=== PATIENT | female | born 1970 | race Two or more races ===

== ENCOUNTER 2020-08-21 17:21 | Inpatient (IN) | payer BC ==
[~2020-08-21] VITALS: Ht 160 cm; Wt 103.6 kg
[2020-08-21 19:28] LABS: BASO # 0.1 x10^3/uL (0.0-0.2); BASO % 0 % (0-3); EOS % 0 % (0-3); HEMATOCRIT 37.8 % (36.0-47.0); LYMPH # 1.2 x10^3/uL (1.0-4.8); LYMPH % 5 % (24-48); MEAN CORPUSCULAR HEMOGLOBIN 26 pg (25-35); MEAN CORPUSCULAR HGB CONC 32 g/dL (31-37); MEAN CORPUSCULAR VOLUME 81 fL (79-100); MONO # 1.2 x10^3/uL (0.0-1.1); MONO % 5 % (0-9); NEUT # 21.8 x10^3/uL (1.8-7.7); NEUT % 90 % (31-73); PLATELET COUNT 302 x10^3/uL (140-400); RED BLOOD COUNT 4.65 x10^6/uL (3.50-5.40); RED CELL DISTRIBUTION WIDTH 18.7 % (11.5-14.5); WHITE BLOOD COUNT 24.4 x10^3/uL (4.0-11.0)
[2020-08-21 19:36] LABS: PROTHROMBIN TIME PATIENT 15.2 SEC (11.7-14.0)
[2020-08-21 19:39] LABS: CALCIUM 9.2 mg/dL (8.5-10.1); CREATININE 0.9 mg/dL (0.6-1.0); GFR 66.3; POTASSIUM 3.8 mmol/L (3.5-5.1)
[2020-08-21 19:47] LABS: % BANDS 19 % (0-9); % LYMPHS 11 % (24-48); % MONOS 6 % (0-10); % SEGS 64 % (35-66); PLT ESTIMATE ADEQUATE (ADEQUATE)
[2020-08-21 19:54] LABS: ALBUMIN 2.6 g/dL (3.4-5.0); ALBUMIN/GLOBULIN RATIO 0.4 (1.0-1.7); TOTAL BILIRUBIN 0.9 mg/dL (0.2-1.0); TOTAL PROTEIN 8.7 g/dL (6.4-8.2)
[2020-08-21] MEDS ORDERED: VANCOMYCIN 1GM IVPB FOR OMNI 250 ML IV ONE (20:00)
[2020-08-21] MEDS ORDERED: IV NORMAL SALINE 1000ML BAG 1,000 ML IV ONE ×3 (20:00)
--- NOTE | 2020-08-21 20:06 | PHYS DOC ---
Past Medical History Past Medical History: Depression, Other Additional Past Medical Histor: KEARNS/CIRRHOSIS Past Surgical History: Appendectomy, Gastric Bypass, Tonsillectomy Smoking Status: Never Smoker Alcohol Use: Occasionally General Adult EDM: Chief Complaint: CELLULITIS HPI: HPI: Patient is a 50 year old female who presents with Thursday she states she mowed the grass. She states that she noticed what looked like a bug bite to the back of the left lower leg the calf area. She states redness then developed quickly and has spread from the anterior and posterior of the leg with 2+ swelling. She states that she had taken her temperature and it was 104 today. She states that she took Tylenol at 1400 today. Upon arrival her temperature was 99.2. She states when she is just sitting the pain is a 4 out of 10. She states when she is up and moving is a sharp throbbing 8 out of 10. She states the pain does radiate up her leg. She is able to ambulate. She denies any numbness or ti ngling, chest pain, shortness of air, cough, abdominal pain, nausea, vomiting, diarrhea, body aches, headache, dizziness. Patient has a history of cirrhosis, depression, gastric bypass. Review of Systems: Review of Systems: Constitutional: Positive for fever or chills. [] Eyes: Denies change in visual acuity. [] HENT: Denies nasal congestion or sore throat. [] Respiratory: Denies cough or shortness of breath. [] Cardiovascular: Denies chest pain or edema. [] GI: Denies abdominal pain, nausea, vomiting, bloody stools or diarrhea. [] : Denies dysuria. [] Musculoskeletal: Denies back pain or joint pain. Positive for left lower leg pain. [] Integument: Denies rash. Left lower leg redness. [] Neurologic: Denies headache, focal weakness or sensory changes. [] Endocrine: Denies polyuria or polydipsia. [] Lymphatic: Denies swollen glands. [] Psychiatric: Denies depression or anxiety. [] Heart Score: Risk Factors: Risk Factors: DM, Current or recent (<one month) smoker, HTN, HLP, family history of CAD, obesity. Risk Scores: Score 0 - 3: 2.5% MACE over next 6 weeks - Discharge Home Score 4 - 6: 20.3% MACE over next 6 weeks - Admit for Clinical Observation Score 7 - 10: 72.7% MACE over next 6 weeks - Early Invasive Strategies Allergies: Allergies: Allergies Coded Allergies Type Severity Reaction Last Updated Verified Penicillins Allergy Unknown 08/21/20 Yes Physical Exam: PE: Constitutional: Well developed, well nourished, no acute distress, non-toxic appearance. [] HENT: Normocephalic, atraumatic, bilateral external ears normal, oropharynx moist, no oral exudates, nose normal. [] Eyes: PERRLA, EOMI, conjunctiva normal, no discharge. [] Neck: Normal range of motion, no tenderness, supple, no stridor. [] Cardiovascular:Heart rate regular rhythm, no murmur [] Lungs & Thorax: Bilateral breath sounds clear to auscultation [] Abdomen: Bowel sounds normal, soft, no tenderness, no masses, no pulsatile masses. [] Skin: Warm, dry, left lower leg erythema, no rash. [] Back: No tenderness, no CVA tenderness. [] Extremities: No tenderness, no cyanosis, no clubbing, ROM intact, no edema. [] Neurologic: Alert and oriented X 3, normal motor function, normal sensory function, no focal deficits noted. [] Psychologic: Affect normal, judgement normal, mood normal. [] Current Patient Data: Labs: Laboratory Tests Test 08/21/20 19:15 White Blood Count 24.4 x10^3/uL (4.0-11.0) H Red Blood Count 4.65 x10^6/uL (3.50-5.40) Hemoglobin 12.0 g/dL (12.0-15.5) Hematocrit 37.8 % (36.0-47.0) Mean Corpuscular Volume 81 fL (79-100) Mean Corpuscular Hemoglobin 26 pg (25-35) Mean Corpuscular Hemoglobin Concent 32 g/dL (31-37) Red Cell Distribution Width 18.7 % (11.5-14.5) H Platelet Count 302 x10^3/uL (140-400) Neutrophils (%) (Auto) 90 % (31-73) H Lymphocytes (%) (Auto) 5 % (24-48) L Monocytes (%) (Auto) 5 % (0-9) Eosinophils (%) (Auto) 0 % (0-3) Basophils (%) (Auto) 0 % (0-3) Neutrophils # (Auto) 21.8 x10^3/uL (1.8-7.7) H Lymphocytes # (Auto) 1.2 x10^3/uL (1.0-4.8) Monocytes # (Auto) 1.2 x10^3/uL (0.0-1.1) H Eosinophils # (Auto) 0.0 x10^3/uL (0.0-0.7) Basophils # (Auto) 0.1 x10^3/uL (0.0-0.2) Segmented Neutrophils % 64 % (35-66) Band Neutrophils % 19 % (0-9) H Lymphocytes % 11 % (24-48) L Monocytes % 6 % (0-10) Platelet Estimate Adequate (ADEQUATE) Prothrombin Time 15.2 SEC (11.7-14.0) H Prothrombin Time INR 1.2 (0.8-1.1) H Sodium Level 131 mmol/L (136-145) L Potassium Level 3.8 mmol/L (3.5-5.1) Chloride Level 92 mmol/L (98-107) L Carbon Dioxide Level 31 mmol/L (21-32) Anion Gap 8 (6-14) Blood Urea Nitrogen 14 mg/dL (7-20) Creatinine 0.9 mg/dL (0.6-1.0) Estimated GFR (Cockcroft-Gault) 66.3 BUN/Creatinine Ratio 16 (6-20) Glucose Level 96 mg/dL (70-99) Lactic Acid Level 2.1 mmol/L (0.4-2.0) H Calcium Level 9.2 mg/dL (8.5-10.1) Total Bilirubin 0.9 mg/dL (0.2-1.0) Aspartate Amino Transferase (AST) 53 U/L (15-37) H Alanine Aminotransferase (ALT) 39 U/L (14-59) Alkaline Phosphatase 157 U/L (46-116) H Total Protein 8.7 g/dL (6.4-8.2) H Albumin 2.6 g/dL (3.4-5.0) L Albumin/Globulin Ratio 0.4 (1.0-1.7) L Laboratory Tests 08/21/20 19:15 Laboratory Tests 08/21/20 19:15 Vital Signs: Vital Signs Date Time Temp Pulse Resp B/P (MAP) Pulse Ox O2 Delivery O2 Flow Rate FiO2 08/21/20 17:46 99.2 103 18 145/89 (107) 95 Room Air 99.2 EKG: EKG: [] Radiology/Procedures: Radiology/Procedures: [] Impression: [facility] [address] [place] [address] IMAGING REPORT Signed PATIENT: JOHN FOWLER ACCOUNT: [id number] : 1970 LOCATION: ER AGE: 50 SEX: F EXAM STATUS: REG ER ORD. PHYSICIAN: BELINDA NOVAK APRN REASON: SWELLING PROCEDURE: VENOUS LOWER EXTREMITY LEFT Left lower extremity venous duplex Doppler ultrasound HISTORY: Left leg swelling and edema. FINDINGS: No DVT evident of the left common femoral vein,, profunda femoral vein, superficial femoral vein and popliteal vein with compressibility and patent color Doppler blood flow and augmentation of blood flow. No DVT with patent color Doppler blood flow the posterior tibial peroneal veins in the calf with some limited visualization. There is soft tissue edema of the leg. IMPRESSION: Negative left leg for DVT. Soft tissue edema of the lower leg. Electronically signed by: Magnus Jain MD (08/21/2020 8:08 PM) [id number] DICTATED and SIGNED BY: MAGNUS JAIN MD DATE: 08/21/202007 Course & Med Decision Making: Course & Med Decision Making Pertinent Labs and Imaging studies reviewed. (See chart for details) See HPI. Patient has been started on vancomycin antibiotic. I have also ordered 2 L of normal saline. She will then have normal saline at 125 an hour running to complete her sepsis fluid bolus. Patient's lactic acid is 2.1. White blood cell count is 24. Left pedal pulses present. I have spoken to Dr. Austin for admission. I will also consult ID. [] Lucille Disclaimer: Lucille Disclaimer: This electronic medical record was generated, in whole or in part, using a voice recognition dictation system. Date and Time of Reassessment Date: Aug 21, 2020 Time: 20:02 Fluid Challenge Is the fluid challenge complet: No IBW Target Volume Used: No BMI > 30: Yes Vital Signs Vital Signs: Vital Signs Date Time Temp Pulse Resp B/P (MAP) Pulse Ox O2 Delivery O2 Flow Rate FiO2 08/21/20 17:46 99.2 103 18 145/89 (107) 95 Room Air 99.2 Temperature Source: Oral Respirations Respiratory Effort: Normal Respiratory Pattern: Normal Cardiovascular Pulse Rhythm: Regular Heart: Nml rate, reg. rhythm Lung Sounds Breath Sounds: Clear Capillary Refil Capillary Refill: Rt Hand > 3 seconds Peripheral Pulse Pulse Location: Radial Pulse Strength: Normal (2+) Pulse Assessment Method: Monitor Integumentary Skin: Warm Skin Moisture: Dry Skin Turgor: Normal Skin Color: warm Fingernail Color: WNL Departure Departure Impression: Primary Impression: Cellulitis Qualified Codes: L03.90 - Cellulitis, unspecified Additional Impression: Sepsis Qualified Codes: A41.9 - Sepsis, unspecified organism Disposition: ADMITTED INPATIENT Admitting Physician: HIMAngelica Condition: STABLE Referrals: NO PCP (PCP) Justicifation of Admission Dx: Justifications for Admission: Justification of Admission Dx: Yes (cellulitis) Comments: cellulitis BELINDA NOVAK NEMATOLOGY TEACHER Aug 21, 2020 20:06
--- NOTE | 2020-08-21 20:10 | RAD ---
Left lower extremity venous duplex Doppler ultrasound HISTORY: Left leg swelling and edema. FINDINGS: No DVT evident of the left common femoral vein,, profunda femoral vein, superficial femoral vein and popliteal vein with compressibility and patent color Doppler blood flow and augmentation of blood flow. No DVT with patent color Doppler blood flow the posterior tibial peroneal veins in the calf with some limited visualization. There is soft tissue edema of the leg. IMPRESSION: Negative left leg for DVT. Soft tissue edema of the lower leg. Electronically signed by: Domenico Jain MD (08/21/2020 8:08 PM) [id number]
[2020-08-21] MEDS ORDERED: VANCOMYCIN 2 GM in IV NORMAL SALINE 500ML BAG 500 ML IV ONE (20:15)
[2020-08-21] MEDS ORDERED: SENNOSIDES 8.6 MG TABLET PO PRN (22:30)
[2020-08-21] MEDS ORDERED: IV NORMAL SALINE 1000ML BAG 1,000 ML IV SCH (22:30)
[2020-08-21] MEDS ORDERED: ONDANSETRON PF 4 MG/2 ML VIAL. IVP PRN (22:30)
[2020-08-21] MEDS ORDERED: ENOXAPARIN 40 MG/0.4 ML SYRINGE. SQ SCH (22:30)
[2020-08-21] MEDS ORDERED: ACETAMINOPHEN 325 MG TABLET. PO PRN (22:30)
[2020-08-21] MEDS ORDERED: POTASSIUM CHLORIDE 10MEQ 100 ML IV PRN (22:30)
[2020-08-21] MEDS ORDERED: POTASSIUM CHLORIDE 20 MEQ TABLET.ER. PO PRN (22:30)
[2020-08-21] MEDS ORDERED: DEXTROSE 50% 25 GM / 50ML DISP.SYRIN. IV PRN (22:30)
[2020-08-21] MEDS ORDERED: DOCUSATE SODIUM 100 MG CAPSULE. PO PRN (22:30)
[2020-08-21] MEDS: POTASSIUM CHLORIDE 10MEQ 100 ML IV SCH (23:30)
[2020-08-22] MEDS: POTASSIUM CHLORIDE 10MEQ 100 ML IV SCH ×3 (00:04→01:30)
[2020-08-22 01:36] LABS: BASO # 0.1 x10^3/uL (0.0-0.2); BASO % 0 % (0-3); EOS % 0 % (0-3); HEMATOCRIT 30.4 % (36.0-47.0); HEMOGLOBIN 9.6 g/dL (12.0-15.5); LYMPH # 1.1 x10^3/uL (1.0-4.8); LYMPH % 6 % (24-48); MEAN CORPUSCULAR HEMOGLOBIN 26 pg (25-35); MEAN CORPUSCULAR HGB CONC 32 g/dL (31-37); MEAN CORPUSCULAR VOLUME 81 fL (79-100); MONO # 1.1 x10^3/uL (0.0-1.1); MONO % 7 % (0-9); NEUT # 14.9 x10^3/uL (1.8-7.7); NEUT % 87 % (31-73); PLATELET COUNT 223 x10^3/uL (140-400); RED BLOOD COUNT 3.77 x10^6/uL (3.50-5.40); RED CELL DISTRIBUTION WIDTH 18.5 % (11.5-14.5); WHITE BLOOD COUNT 17.3 x10^3/uL (4.0-11.0)
[2020-08-22 01:48] LABS: CALCIUM 7.7 mg/dL (8.5-10.1); CREATININE 0.7 mg/dL (0.6-1.0); GFR 88.6; MAGNESIUM 1.6 mg/dL (1.8-2.4); PHOSPHORUS 1.7 mg/dL (2.6-4.7); POTASSIUM 3.9 mmol/L (3.5-5.1)
[2020-08-22 03:00] VITALS: BP 121/66
[2020-08-22] MEDS: VANCOMYCIN PER PHARMACY MC PRN ×2 (03:51→11:44)
--- NOTE | 2020-08-22 03:53 | NUR ---
Pharmacy Vancomycin Dosing Note S:Consulted to monitor and dose vancomycin started 08/21/20. O:JOHN FOWLER is a 50 year old F with Cellulitis . Height: 5 feet, 3 inches Weight: 95.0 kg [place] Body Weight: 52.40 Adjusted Body Weight: 69.44 Dosing Weight: Actual Other Antibiotics: LABS: Last BUN: 14 Last Creatinine: 0.9 Creatinine Clearance: 105 mL/min Last WBC: 24.4 Last Procalcitonin: Tmax (past 24 hours): Microbiology: I/O: Drug Levels: Last level: on at Last dose given at Vancomycin Dosing: Loading Dose: 2000 mg x1 08/21/202018 Dosing Weight: Actual Target Trough: 10-20 A: Based on: Actual Wt and CrCl P: 1. 08/22/20 0830 Vancomycin 1500 mg IV q12h 2. Follow up Trough level on 08/23/20 at 0800 3. Pharmacy will continue to monitor, follow and adjust therapy as needed. COLLINS GARCIA RPH, 08/22/20 0353 Signed: 08/22/20 at 0355 by COLLINS GARCIA RPH PHA
[2020-08-22] MEDS: MAGNESIUM SULFATE 2GM 50 ML IV SCH ×2 (04:04→21:04)
[2020-08-22] MEDS: fentaNYL PF VIAL 100 MCG/2 ML VIAL IV PRN ×2 (04:05→14:11)
[2020-08-22] MEDS ORDERED: FURO40TA4 PO (05:58)
[2020-08-22] MEDS ORDERED: NADO20TA2 PO (05:58)
[2020-08-22] MEDS ORDERED: RIFA550T4 PO (05:58)
[2020-08-22] MEDS ORDERED: NORT25CA PO (05:58)
[2020-08-22] MEDS ORDERED: CALC250T PO (05:58)
[2020-08-22] MEDS ORDERED: LACT20SO PO (05:58)
[2020-08-22] MEDS ORDERED: MULT-245 PO (05:58)
[2020-08-22] MEDS ORDERED: MAGN500C10 PO (05:58)
[2020-08-22] MEDS ORDERED: SPIR100T4 PO (05:58)
[2020-08-22 07:00] VITALS: BP 119/89
[2020-08-22] MEDS ORDERED: VANCOMYCIN 1.5 GM in IV NORMAL SALINE 500ML BAG 500 ML IV SCH (08:30)
--- NOTE | 2020-08-22 08:43 | PDOC1 ---
History and Physical Date of Admission Date of Admission DATE: 08/22/20 TIME: 08:42 Identification/Chief Complaint Chief Complaint SEEN IN ER WITH SEPSIS 50 year old female who presents with Thursday she states she mowed the grass. She states that she noticed what looked like a bug bite to the back of the left lower leg the calf area. She states redness then developed quickly and has spread from the anterior and posterior of the leg with 2+ swelling. She states that she had taken her temperature and it was 104 08/21 Upon arrival her temperature was 99.2 IN ER . She states when she is just sitting the pain is a 4 out of 10. She states when she is up and moving is a sharp throbbing 8 out of 10. She states the pain does radiate up her leg. She is able to ambulate. denies any numbness or tingling, chest pain, shortness of air, cough, abdominal pain, nausea, vomiting, diarrhea, body aches, headache, dizziness. Patient has a history of cirrhosis, depression, gastric bypass. Past Medical History Past Medical History Past Medical History Past Medical History: Depression, Other Additional Past Medical Histor: KEARNS/CIRRHOSIS Past Surgical History: Appendectomy, Gastric Bypass, Tonsillectomy Smoking Status: Never Smoker Alcohol Use: Occasionally fhx obesity Family History Family History: Hypertension Social History Smoke: No ALCOHOL: none Drugs: None Current Problem List Problem List Problems Medical Problems: (1) Cellulitis Status: Acute (2) Sepsis Status: Acute Current Medications Current Medications Current Medications Sodium Chloride 1,000 ml @ 1,000 mls/hr 1X ONCE IV Last administered on 08/21/20at 20:19; Start 08/21/20 at 20:00; Stop 08/21/20 at 20:59; Status DC Sodium Chloride 1,000 ml @ 1,000 mls/hr 1X ONCE IV Last administered on 08/21/20at 20:20; Start 08/21/20 at 20:00; Stop 08/21/20 at 20:59; Status DC Vancomycin HCl 250 ml @ 250 mls/hr 1X ONCE IV ; Start 08/21/20 at 20:00; Stop 08/21/20 at 20:59; Status UNV Sodium Chloride 1,000 ml @ 125 mls/hr 1X ONCE IV Last administered on 08/21/20at 20:20; Start 08/21/20 at 20:00; Stop 08/22/20 at 03:59; Status DC Vancomycin HCl 2 gm/Sodium Chloride 500 ml @ 250 mls/hr 1X ONCE IV Last administered on 08/21/20at 20:19; Start 08/21/20 at 20:15; Stop 08/21/20 at 22:14; Status DC Fentanyl Citrate (Fentanyl 2ml Vial) 50 mcg PRN Q1HR PRN IV PAIN Last administered on 08/22/20at 04:05; Start 08/21/20 at 20:30; Stop 08/22/20 at 20:29 Sennosides (Senna) 17.2 mg PRN BID PRN PO CONSTIPATION; Start 08/21/20 at 22:30 Docusate Sodium (Colace) 100 mg PRN DAILY PRN PO HARD STOOLS; Start 08/21/20 at 22:30 Ondansetron HCl (Zofran) 4 mg PRN Q6HRS PRN IVP NAUSEA/VOMITING; Start 08/21/20 at 22:30 Potassium Chloride (Klor-Con) 40 meq 1X PRN PO PER PROTOCOL; Start 08/21/20 at 22:30 Magnesium Oxide (Magnesium Oxide) 400 mg BID PO ; Start 08/22/20 at 09:00; Stop 08/23/20 at 21:01 Potassium Chloride/Water 100 ml @ 100 mls/hr Q1H IV Last administered on 08/22/20at 00:04; Start 08/21/20 at 22:30; Stop 08/22/20 at 02:29; Status DC Magnesium Sulfate 50 ml @ 25 mls/hr Q24H IV Last administered on 08/22/20at 04:04; Start 08/21/20 at 22:30; Stop 08/24/20 at 00:29 Potassium Chloride/Water 100 ml @ 100 mls/hr PRN Q1HR PRN IV low k Last administered on 08/22/20at 01:07; Start 08/21/20 at 22:30 Dextrose (Dextrose 50%-Water Syringe) 12.5 gm PRN Q15MIN PRN IV SEE COMMENTS; Start 08/21/20 at 22:30 Sodium Chloride 1,000 ml @ 125 mls/hr Q8H IV Last administered on 08/22/20at 00:03; Start 08/21/20 at 22:30 Acetaminophen (Tylenol) 650 mg PRN Q4HRS PRN PO TEMP OVER 100.4F OR MILD PAIN; Start 08/21/20 at 22:30 Vancomycin HCl (Vanco Per Pharmacy) 1 each PRN DAILY PRN MC SEE COMMENTS Last administered on 08/22/20at 03:51; Start 08/21/20 at 22:30 Enoxaparin Sodium (Lovenox 40mg Syringe) 40 mg Q24H SQ Last administered on 08/22/20at 04:05; Start 08/21/20 at 22:30 Vancomycin HCl 1.5 gm/Sodium Chloride 500 ml @ 250 mls/hr Q12H IV ; Start 08/22/20 at 08:30 Vancomycin HCl (Vancomycin Trough Level) 1 each 1X ONCE MC ; Start 08/23/20 at 08:00; Stop 08/23/20 at 08:01 Influenza Virus Vaccine Quadrival (Fluzone Quad Syringe) 0.5 ml ONCE ONCE VAX IM ; Start 08/22/20 at 09:00; Stop 08/22/20 at 09:01 Active Scripts Active Reported Magnesium (Magnesium Oxide) 500 Mg Capsule 1 Cap PO BID 30 Days Multi Vitamin Daily (Multivitamin) 1 Each Tablet 1 Tab PO DAILY 30 Days Lactulose 20 Gm/30 Ml Solution 45 Ml PO DAILY Calcium Citrate 250 Mg Tablet 1,200 Mg PO DAILY 30 Days Xifaxan (Rifaximin) 550 Mg Tablet 1 Tab PO BID 10 Days Spironolactone 100 Mg Tablet 1 Tab PO DAILY Furosemide 40 Mg Tablet 1 Tab PO DAILY Nadolol 20 Mg Tablet 1 Tab PO DAILY Nortriptyline Hcl 25 Mg Capsule 50 Mg PO QHS Allergies Allergies: Coded Allergies: Penicillins (Verified Allergy, Unknown, 08/21/20) ROS Review of System Review of Systems: Constitutional: Positive for fever // chills. [] Eyes: Denies change in visual acuity. [] HENT: Denies nasal congestion or sore throat. [] Respiratory: Denies cough or shortness of breath. [] Cardiovascular: Denies chest pain or edema. [] GI: Denies abdominal pain, nausea, vomiting, bloody stools or diarrhea. [] : Denies dysuria. [] Musculoskeletal: Denies back pain or joint pain. Positive for left lower leg pain. [] Integument: Denies rash. Left lower leg redness. [] Neurologic: Denies headache, focal weakness or sensory changes. [] Endocrine: Denies polyuria or polydipsia. [] Lymphatic: Denies swollen glands. [] Psychiatric: Denies depression or anxiety. [] 14 PT ROS OTHERWISE NEG Physical Exam Physical Exam Constitutional: Well developed, well nourished, no acute distress, non-toxic appearance. [] HENT: Normocephalic, atraumatic, bilateral external ears normal, oropharynx moist, no oral exudates, nose normal. [] Eyes: PERRLA, EOMI, conjunctiva normal, no discharge. [] Neck: Normal range of motion, no tenderness, supple, no stridor. [] Cardiovascular:Heart rate regular rhythm, no murmur [] Lungs & Thorax: Bilateral breath sounds clear to auscultation [] Abdomen: Bowel sounds normal, soft, no tenderness, no masses, no pulsatile masses. [] Skin: Warm, dry, left lower leg erythema, TENDER NO OPEN WOUNDS [] Back: No tenderness, no CVA tenderness. [] Extremities: No tenderness, no cyanosis, no clubbing, ROM intact, no edema. [] Neurologic: Alert and oriented X 3, normal motor function, normal sensory function, no focal deficits noted. [] Psychologic: Affect normal, judgment normal, mood normal. [] General: Alert, Oriented X3, Cooperative, No acute distress HEENT: EOMI, Mucous membr. moist/pink Lungs: Clear to auscultation, Normal air movement Heart: S1S2, RRR Breasts: Not examined Abdomen: Normal bowel sounds, Soft Rectal Exam: not examined PELVIC: Examination not indicated Extremities: No cyanosis Neuro: Normal speech, Cranial nerves 3-12 NL Psych/Mental Status: Mental status NL, Mood NL Vitals Vitals Vital Signs Date Time Temp Pulse Resp B/P (MAP) Pulse Ox O2 Delivery O2 Flow Rate FiO2 08/22/20 07:00 98.6 101 18 119/89 (99) 95 Room Air 98.6 Labs Labs Laboratory Tests Test 08/21/20 19:15 08/22/20 01:28 White Blood Count 24.4 x10^3/uL (4.0-11.0) 17.3 x10^3/uL (4.0-11.0) Red Blood Count 4.65 x10^6/uL (3.50-5.40) 3.77 x10^6/uL (3.50-5.40) Hemoglobin 12.0 g/dL (12.0-15.5) 9.6 g/dL (12.0-15.5) Hematocrit 37.8 % (36.0-47.0) 30.4 % (36.0-47.0) Mean Corpuscular Volume 81 fL (79-100) 81 fL (79-100) Mean Corpuscular Hemoglobin 26 pg (25-35) 26 pg (25-35) Mean Corpuscular Hemoglobin Concent 32 g/dL (31-37) 32 g/dL (31-37) Red Cell Distribution Width 18.7 % (11.5-14.5) 18.5 % (11.5-14.5) Platelet Count 302 x10^3/uL (140-400) 223 x10^3/uL (140-400) Neutrophils (%) (Auto) 90 % (31-73) 87 % (31-73) Lymphocytes (%) (Auto) 5 % (24-48) 6 % (24-48) Monocytes (%) (Auto) 5 % (0-9) 7 % (0-9) Eosinophils (%) (Auto) 0 % (0-3) 0 % (0-3) Basophils (%) (Auto) 0 % (0-3) 0 % (0-3) Neutrophils # (Auto) 21.8 x10^3/uL (1.8-7.7) 14.9 x10^3/uL (1.8-7.7) Lymphocytes # (Auto) 1.2 x10^3/uL (1.0-4.8) 1.1 x10^3/uL (1.0-4.8) Monocytes # (Auto) 1.2 x10^3/uL (0.0-1.1) 1.1 x10^3/uL (0.0-1.1) Eosinophils # (Auto) 0.0 x10^3/uL (0.0-0.7) 0.0 x10^3/uL (0.0-0.7) Basophils # (Auto) 0.1 x10^3/uL (0.0-0.2) 0.1 x10^3/uL (0.0-0.2) Segmented Neutrophils % 64 % (35-66) Band Neutrophils % 19 % (0-9) Lymphocytes % 11 % (24-48) Monocytes % 6 % (0-10) Platelet Estimate Adequate (ADEQUATE) Prothrombin Time 15.2 SEC (11.7-14.0) Prothromb Time International Ratio 1.2 (0.8-1.1) Sodium Level 131 mmol/L (136-145) 134 mmol/L (136-145) Potassium Level 3.8 mmol/L (3.5-5.1) 3.9 mmol/L (3.5-5.1) Chloride Level 92 mmol/L (98-107) 98 mmol/L (98-107) Carbon Dioxide Level 31 mmol/L (21-32) 27 mmol/L (21-32) Anion Gap 8 (6-14) 9 (6-14) Blood Urea Nitrogen 14 mg/dL (7-20) 12 mg/dL (7-20) Creatinine 0.9 mg/dL (0.6-1.0) 0.7 mg/dL (0.6-1.0) Estimated GFR (Cockcroft-Gault) 66.3 88.6 BUN/Creatinine Ratio 16 (6-20) Glucose Level 96 mg/dL (70-99) 82 mg/dL (70-99) Lactic Acid Level 2.1 mmol/L (0.4-2.0) 0.7 mmol/L (0.4-2.0) Calcium Level 9.2 mg/dL (8.5-10.1) 7.7 mg/dL (8.5-10.1) Total Bilirubin 0.9 mg/dL (0.2-1.0) Aspartate Amino Transf (AST/SGOT) 53 U/L (15-37) Alanine Aminotransferase (ALT/SGPT) 39 U/L (14-59) Alkaline Phosphatase 157 U/L (46-116) Total Protein 8.7 g/dL (6.4-8.2) Albumin 2.6 g/dL (3.4-5.0) Albumin/Globulin Ratio 0.4 (1.0-1.7) Phosphorus Level 1.7 mg/dL (2.6-4.7) Magnesium Level 1.6 mg/dL (1.8-2.4) Laboratory Tests Test 08/21/20 19:15 08/22/20 01:28 White Blood Count 24.4 x10^3/uL (4.0-11.0) 17.3 x10^3/uL (4.0-11.0) Red Blood Count 4.65 x10^6/uL (3.50-5.40) 3.77 x10^6/uL (3.50-5.40) Hemoglobin 12.0 g/dL (12.0-15.5) 9.6 g/dL (12.0-15.5) Hematocrit 37.8 % (36.0-47.0) 30.4 % (36.0-47.0) Mean Corpuscular Volume 81 fL (79-100) 81 fL (79-100) Mean Corpuscular Hemoglobin 26 pg (25-35) 26 pg (25-35) Mean Corpuscular Hemoglobin Concent 32 g/dL (31-37) 32 g/dL (31-37) Red Cell Distribution Width 18.7 % (11.5-14.5) 18.5 % (11.5-14.5) Platelet Count 302 x10^3/uL (140-400) 223 x10^3/uL (140-400) Neutrophils (%) (Auto) 90 % (31-73) 87 % (31-73) Lymphocytes (%) (Auto) 5 % (24-48) 6 % (24-48) Monocytes (%) (Auto) 5 % (0-9) 7 % (0-9) Eosinophils (%) (Auto) 0 % (0-3) 0 % (0-3) Basophils (%) (Auto) 0 % (0-3) 0 % (0-3) Neutrophils # (Auto) 21.8 x10^3/uL (1.8-7.7) 14.9 x10^3/uL (1.8-7.7) Lymphocytes # (Auto) 1.2 x10^3/uL (1.0-4.8) 1.1 x10^3/uL (1.0-4.8) Monocytes # (Auto) 1.2 x10^3/uL (0.0-1.1) 1.1 x10^3/uL (0.0-1.1) Eosinophils # (Auto) 0.0 x10^3/uL (0.0-0.7) 0.0 x10^3/uL (0.0-0.7) Basophils # (Auto) 0.1 x10^3/uL (0.0-0.2) 0.1 x10^3/uL (0.0-0.2) Segmented Neutrophils % 64 % (35-66) Band Neutrophils % 19 % (0-9) Lymphocytes % 11 % (24-48) Monocytes % 6 % (0-10) Platelet Estimate Adequate (ADEQUATE) Prothrombin Time 15.2 SEC (11.7-14.0) Prothromb Time International Ratio 1.2 (0.8-1.1) Sodium Level 131 mmol/L (136-145) 134 mmol/L (136-145) Potassium Level 3.8 mmol/L (3.5-5.1) 3.9 mmol/L (3.5-5.1) Chloride Level 92 mmol/L (98-107) 98 mmol/L (98-107) Carbon Dioxide Level 31 mmol/L (21-32) 27 mmol/L (21-32) Anion Gap 8 (6-14) 9 (6-14) Blood Urea Nitrogen 14 mg/dL (7-20) 12 mg/dL (7-20) Creatinine 0.9 mg/dL (0.6-1.0) 0.7 mg/dL (0.6-1.0) Estimated GFR (Cockcroft-Gault) 66.3 88.6 BUN/Creatinine Ratio 16 (6-20) Glucose Level 96 mg/dL (70-99) 82 mg/dL (70-99) Lactic Acid Level 2.1 mmol/L (0.4-2.0) 0.7 mmol/L (0.4-2.0) Calcium Level 9.2 mg/dL (8.5-10.1) 7.7 mg/dL (8.5-10.1) Total Bilirubin 0.9 mg/dL (0.2-1.0) Aspartate Amino Transf (AST/SGOT) 53 U/L (15-37) Alanine Aminotransferase (ALT/SGPT) 39 U/L (14-59) Alkaline Phosphatase 157 U/L (46-116) Total Protein 8.7 g/dL (6.4-8.2) Albumin 2.6 g/dL (3.4-5.0) Albumin/Globulin Ratio 0.4 (1.0-1.7) Phosphorus Level 1.7 mg/dL (2.6-4.7) Magnesium Level 1.6 mg/dL (1.8-2.4) Images Images DPOA REVIEW 17 MIN What Is a Power of Cna Ltc? A power of estate planning attorney (POA) is a legal document giving one person (the agent or [id number]) the power to act for another person (the principal). The agent can have broad legal authority or limited authority to make legal decisions about the principal's property, finances or medical care. The power of estate planning attorney is frequently used in the event of a principal's illness or disability, or when the principal can't be present to sign necessary legal documents for financial transactions. A power of estate planning attorney can end for a number of reasons, such as when the principal dies, the principal revokes it, a court invalidates it, the principal divorces their spouse, who happens to be the agent, or the agent can no longer carry out the outlined responsibilities. Conventional POAs lapse when the creator becomes incapacitated, but a durable POA remains in force to enable the agent to manage the creators affairs, and a springing POA comes into effect only if and when the creator of the POA becomes incapacitated. A medical or healthcare POA enables an agent to make medical decisions on behalf of an incapacitated person. [employer] A power of estate planning attorney (POA) is a legal document giving one person, the agent or [id number] the power to act for another person, the principal. The agent can have broad legal authority or limited authority to make decisions about the principal's property, finances or medical care. The power of estate planning attorney is often used when a principal becomes ill or disabled, or when they can't be present to sign necessary legal documents for financial transactions. Understanding Power of Cna Ltc A power of estate planning attorney should be considered when planning for long-term care. There are different types of POAs that fall under either a general power of estate planning attorney or limited power of estate planning attorney. A general power of estate planning attorney acts on behalf of the principal in any and all matters, as allowed by the state. The agent under a general POA agreement may be authorized to take care of issues such as handling bank accounts, signing checks, selling property and assets like stocks, f A limited power of estate planning attorney gives the agent the power to act on behalf of the principal in specific matters or events. For example, the limited POA may explicitly state that the agent is only allowed to manage the principal's re tirement accounts. A limited POA may also be limited to a specific period of time (e.g., if the principal will be out of the country for, say, two years). Most khoury of estate planning attorney documents allow an agent to represent the principal in all property and financial matters as long as the principals mental state of mind is good. If a situation occurs where the principal becomes incapable of making decisions for him or herself, the POA agreement would automatically end. However, someone who wants the POA to remain in effect after the persons health deteriorates would need to sign a durable power of estate planning attorney (DPOA). Comment Left lower extremity venous duplex Doppler ultrasound HISTORY: Left leg swelling and edema. FINDINGS: No DVT evident of the left common femoral vein,, profunda femoral vein, superficial femoral vein and popliteal vein with compressibility and patent color Doppler blood flow and augmentation of blood flow. No DVT with patent color Doppler blood flow the posterior tibial peroneal veins in the calf with some limited visualization. There is soft tissue edema of the leg. IMPRESSION: Negative left leg for DVT. Soft tissue edema of the lower leg. Electronically signed by: Domenico Jain MD (08/21/2020 8:08 PM) [id number] DICTATED and SIGNED BY: DOMENICO JAIN MD DATE: 08/21/202007 VTE Prophylaxis Ordered VTE Prophylaxis Devices: No VTE Pharmacological Prophylaxi: Yes Assessment/Plan Assessment/Plan Impression: Cellulitis LEFT LOWER LEG, SPIDER BITE POA MORBID OBESITY Sepsis electrolyte imbalance on replacement KEARNS Depression ADMITTED EMPERIC IV VANCOMYCIN IV FLUID SUPPORT BLOOD CULTURE DT booster if needed dvt prophylaxis D/W RN Justifications for Admission General Conditions Elevated Lactate?: Yes Justification for admission: Patient has tachycardia (> 100 beats per minute) or hypotension (SBP < 90 mm Hg) leading to inadequate systemic perfusion as indicated by lactate of greater or equal to 2.5 mmol/L. Other justification for admit: cellulitis Other Justification SANDI BONNER MD Aug 22, 2020 08:43
[2020-08-22] MEDS ORDERED: FLU VACC QS 2020-21(6MOS+)/PF 0.5 ML SYRINGE. VAX IM ONE (09:00)
[2020-08-22] MEDS: MAGNESIUM OXIDE 400 MG TABLET PO SCH ×2 (09:21→21:03)
[2020-08-22 10:40] VITALS: BP 122/80
[2020-08-22] MEDS: IV NORMAL SALINE 1000ML BAG 1,000 ML IV SCH ×2 (10:59→21:04)
[2020-08-22] MEDS ORDERED: ONDANSETRON PF 4 MG/2 ML VIAL. IV PRN (11:00)
[2020-08-22] MEDS ORDERED: POTASSIUM BICARB 10 MEQ EFFERVESCENT TABLET. FT ONE (11:00)
[2020-08-22] MEDS ORDERED: ZOLPIDEM 5 MG TABLET. PO PRN (11:00)
[2020-08-22] MEDS ORDERED: 0.9 % SODIUM CHLORIDE 10 ML DISP.SYRIN. IV PRN (11:00)
[2020-08-22] MEDS ORDERED: POTASSIUM BICARB 10 MEQ EFFERVESCENT TABLET. PO SCH (11:00)
[2020-08-22] MEDS ORDERED: ACETAMINOPHEN 325 MG TABLET. PO PRN (11:00)
[2020-08-22] MEDS ORDERED: guaiFENesin ORAL 200 MG/10 ML LIQUID. PO PRN (11:00)
[2020-08-22] MEDS ORDERED: diphenhydrAMINE 50 MG/ML VIAL IVP PRN (11:00)
[2020-08-22] MEDS ORDERED: DOCUSATE SODIUM 100 MG CAPSULE. PO PRN (11:00)
[2020-08-22] MEDS ORDERED: MAG HYDROX/ALUMINUM HYD/SIMETH 30 ML ORAL.SUSP PO PRN (11:00)
[2020-08-22] MEDS ORDERED: MAGNESIUM SULFATE 2GM 50 ML IV SCH (11:00)
[2020-08-22] MEDS ORDERED: POTASSIUM CHLORIDE 20 MEQ TABLET.ER. PO ONE (11:00)
[2020-08-22] MEDS ORDERED: VANCOMYCIN PER PHARMACY MC PRN (11:00)
[2020-08-22] MEDS ORDERED: SODIUM PHOSPHATES 19/7GM 133 ML ENEMA. PR PRN (11:00)
[2020-08-22] MEDS ORDERED: LORazepam 0.5 MG TABLET PO PRN (11:00)
[2020-08-22] MEDS ORDERED: cloNIDine HCL 0.1 MG TABLET PO PRN (11:00)
[2020-08-22] MEDS ORDERED: ALBUTEROL SULFATE 2.5 MG/3 ML NEBU. NEB PRN (11:00)
[2020-08-22] MEDS ORDERED: POTASSIUM CHLORIDE 10MEQ 100 ML IV SCH ×2 (11:00)
[2020-08-22] MEDS ORDERED: ELECTROLYTE (NON-ICU) PROTOCOL MC PRN (11:15)
--- NOTE | 2020-08-22 12:59 | PDOC ---
Infectious Disease Note Vital Sign Vital Signs Vital Signs Date Time Temp Pulse Resp B/P (MAP) Pulse Ox O2 Delivery O2 Flow Rate FiO2 08/22/20 10:40 98.4 104 18 122/80 (94) 96 Room Air 98.4 Labs Lab Laboratory Tests Test 08/21/20 19:15 08/22/20 01:28 White Blood Count 24.4 x10^3/uL (4.0-11.0) 17.3 x10^3/uL (4.0-11.0) Red Blood Count 4.65 x10^6/uL (3.50-5.40) 3.77 x10^6/uL (3.50-5.40) Hemoglobin 12.0 g/dL (12.0-15.5) 9.6 g/dL (12.0-15.5) Hematocrit 37.8 % (36.0-47.0) 30.4 % (36.0-47.0) Mean Corpuscular Volume 81 fL (79-100) 81 fL (79-100) Mean Corpuscular Hemoglobin 26 pg (25-35) 26 pg (25-35) Mean Corpuscular Hemoglobin Concent 32 g/dL (31-37) 32 g/dL (31-37) Red Cell Distribution Width 18.7 % (11.5-14.5) 18.5 % (11.5-14.5) Platelet Count 302 x10^3/uL (140-400) 223 x10^3/uL (140-400) Neutrophils (%) (Auto) 90 % (31-73) 87 % (31-73) Lymphocytes (%) (Auto) 5 % (24-48) 6 % (24-48) Monocytes (%) (Auto) 5 % (0-9) 7 % (0-9) Eosinophils (%) (Auto) 0 % (0-3) 0 % (0-3) Basophils (%) (Auto) 0 % (0-3) 0 % (0-3) Neutrophils # (Auto) 21.8 x10^3/uL (1.8-7.7) 14.9 x10^3/uL (1.8-7.7) Lymphocytes # (Auto) 1.2 x10^3/uL (1.0-4.8) 1.1 x10^3/uL (1.0-4.8) Monocytes # (Auto) 1.2 x10^3/uL (0.0-1.1) 1.1 x10^3/uL (0.0-1.1) Eosinophils # (Auto) 0.0 x10^3/uL (0.0-0.7) 0.0 x10^3/uL (0.0-0.7) Basophils # (Auto) 0.1 x10^3/uL (0.0-0.2) 0.1 x10^3/uL (0.0-0.2) Segmented Neutrophils % 64 % (35-66) Band Neutrophils % 19 % (0-9) Lymphocytes % 11 % (24-48) Monocytes % 6 % (0-10) Platelet Estimate Adequate (ADEQUATE) Prothrombin Time 15.2 SEC (11.7-14.0) Prothromb Time International Ratio 1.2 (0.8-1.1) Sodium Level 131 mmol/L (136-145) 134 mmol/L (136-145) Potassium Level 3.8 mmol/L (3.5-5.1) 3.9 mmol/L (3.5-5.1) Chloride Level 92 mmol/L (98-107) 98 mmol/L (98-107) Carbon Dioxide Level 31 mmol/L (21-32) 27 mmol/L (21-32) Anion Gap 8 (6-14) 9 (6-14) Blood Urea Nitrogen 14 mg/dL (7-20) 12 mg/dL (7-20) Creatinine 0.9 mg/dL (0.6-1.0) 0.7 mg/dL (0.6-1.0) Estimated GFR (Cockcroft-Gault) 66.3 88.6 BUN/Creatinine Ratio 16 (6-20) Glucose Level 96 mg/dL (70-99) 82 mg/dL (70-99) Lactic Acid Level 2.1 mmol/L (0.4-2.0) 0.7 mmol/L (0.4-2.0) Calcium Level 9.2 mg/dL (8.5-10.1) 7.7 mg/dL (8.5-10.1) Total Bilirubin 0.9 mg/dL (0.2-1.0) Aspartate Amino Transf (AST/SGOT) 53 U/L (15-37) Alanine Aminotransferase (ALT/SGPT) 39 U/L (14-59) Alkaline Phosphatase 157 U/L (46-116) Total Protein 8.7 g/dL (6.4-8.2) Albumin 2.6 g/dL (3.4-5.0) Albumin/Globulin Ratio 0.4 (1.0-1.7) Phosphorus Level 1.7 mg/dL (2.6-4.7) Magnesium Level 1.6 mg/dL (1.8-2.4) Objective Assessment Severe cellulitis of left leg. US neg DVT. Insect bite suspected. Symptoms developed after mowing the lawn. [place] and has seen spiders about the house. Leukocytosis PCN allergy (hives/trouble breathing) Tolerated amoxicillin 10 yrs ago and believes she's taken cephalexin ok Fever and chills improved since admission Obesity KEARNS Plan Plan of Care vancomycin per pharmacy protocol Monitor renal function closely Last tetanus was in May 2016 Further recs to follow Thank yo H/o tooth infection and ? KEARNS 4 years ago. Has tolerated Keflex and Amox Fairly rapid onset from Thu to Thursday and high fever likely a strep. Does not look like typical bug bite Change to Rocephin and Zyvox Elevation. Attending Co-Sign Attending Co-Sign The patient was seen and interviewed as well as examined at the bedside. The chart was reviewed. The case was discussed. Agree with the plan of care. DALE AGUIRRE APRN Aug 22, 2020 12:58 ABHIJIT SOTO MD Aug 22, 2020 13:46
[2020-08-22] MEDS: LACTOBACILLUS RHAMNOSUS GG 1 CAPSULE. PO SCH ×2 (14:11→21:03)
--- NOTE | 2020-08-22 14:13 | CONS ---
DATE OF CONSULTATION: 08/22/2020 Myriam Persaud NP dictating for Dr. Abhijit Soto, Infectious Disease. Referred by Cayla Child APRN. REASON FOR CONSULTATION: Cellulitis. HISTORY OF PRESENT ILLNESS: This patient is a pleasant 50-year-old female who presented with complaints of progressive left leg redness, swelling and pain associated with a fever of 104 and chills. She said her symptoms started about 2 days after she was outside mowing the lawn. She believes she may had been bitten as she noticed an open wound develop on the back of her left calf. She states she applied a warm washcloth to the area and took Tylenol with minimal improvement. A venous Doppler ultrasound showed no evidence of DVT. She was admitted and started on vancomycin. Today, the patient says her leg is about the same. Her leg still feels quite swollen and tight and throbs when she walks. Her fever and chills have settled down. She says her last tetanus shot was in 05/2016. [place] and has noticed quite a number of spiders about the house. She denies a history of Staph infections or recent antibiotics. PAST MEDICAL HISTORY: KEARNS followed by [facility]. Depression. Hypertension. PAST SURGICAL HISTORY: Gastric bypass, tonsillectomy, appendectomy. SOCIAL HISTORY: The patient is single. She is a former smoker. She is employed and works [employer] FAMILY HISTORY: Hypertension. ALLERGIES: PENICILLIN CAUSING HIVES AND DIFFICULTY BREATHING. She states she has taken amoxicillin about 10 years ago and believes that she has taken cephalexin without problem. MEDICATIONS: Reviewed on the MAR include vancomycin. REVIEW OF SYSTEMS: Per HPI, otherwise all other review of systems are negative. PHYSICAL EXAMINATION: VITAL SIGNS: Temperature is 98.4, blood pressure 122/80, heart rate 104, respiratory rate 18, pulse oximetry 96% on room air. GENERAL: The patient is propped up in bed, alert, eating, no apparent distress. HEENT: Pupils equally round, reactive. Normal conjunctivae. Oropharynx pink and moist. Dentures in place. NECK: Supple. LUNGS: Clear to auscultation. HEART: S1, S2. ABDOMEN: Obese, soft, nontender with bowel sounds present. EXTREMITIES: Unremarkable except left lower extremity is swollen, warm with circumferential redness from foot area to below the knee and medial thigh. A small puncture-like wound noted on the back of the calf. No drainage. SKIN: Warm to touch. No signs of rash. NEUROLOGIC: Alert and answering questions appropriately. LABORATORY DATA: Today's WBC 17,300 from 24,400 on admission; hemoglobin 9.6; platelets 223,000; segs 64%; bands 19%. Sodium 134, potassium 3.9, creatinine 0.7, BUN 12, glucose 82. Lactic acid 0.7 from 2.1, total bilirubin 0.9, AST 53, ALT 39, albumin 2.6. Blood cultures in progress. Venous ultrasound of left lower extremity showed no evidence of DVT. Soft tissue edema. IMPRESSION: 1. Severe cellulitis, left lower extremity. 2. Insect bite suspected. 3. Leukocytosis. 4. PENICILLIN ALLERGY CAUSING HIVES AND TROUBLE BREATHING. 5. Fever and chills, improved since admission. 6. Obesity. 8. Nonalcoholic steatohepatitis. PLAN: Likely strep related with rapid onset vs a bug bite. Dr. Soto recommends Zyvox and Rocephin Discontinue the vancomycin. Continue to monitor response. Thank you, Cayla Child for asking us to participate in this patient's care. Should you have further questions or concerns, please call. ABHIJIT SOTO MD DR: SHAD/lilian JOB#: [id number] / [id number] ERIN
--- NOTE | 2020-08-22 14:25 | NUR ---
SW following. Spoke with RN and reviewed chart. Pt from home with boyfriend. Pt on room air, IV Vancomycin. ID following. Spoke with pt who works from home and stated no concerns about returning home at discharge. ELLYN following.
--- NOTE | 2020-08-22 14:25 | NUR ---
Wound Care signing off, no open or draining wounds. Addendum: 08/22/20 at 1426 by FABIANO CHAMBERS RN Wound Care: Please reconsult if open wounds occur.
[2020-08-22 15:01] VITALS: BP 117/69
[2020-08-22] MEDS: cefTRIAXone IV Push 2 GM VIAL. IVP SCH (15:15)
[2020-08-22 19:00] VITALS: BP 152/81
[2020-08-22] MEDS: oxyCODONE/APAP 5/325 1 TAB TABLET PO PRN (19:47)
[2020-08-22] MEDS ORDERED: MAGNESIUM OXIDE 400 MG TABLET PO SCH (21:00)
[2020-08-22] MEDS ORDERED: POTASSIUM & SODIUM PHOSPHATES PACKET. PO SCH (21:00)
[2020-08-22] MEDS: LINEZOLID 600 MG TABLET PO SCH (21:03)
[2020-08-22] MEDS: ENOXAPARIN 40 MG/0.4 ML SYRINGE. SQ SCH (21:03)
[2020-08-22 23:00] VITALS: BP 164/79
[2020-08-23 03:02] VITALS: BP 100/63
[2020-08-23 07:00] VITALS: BP 142/68
[2020-08-23] MEDS: LACTOBACILLUS RHAMNOSUS GG 1 CAPSULE. PO SCH ×2 (09:05→21:31)
[2020-08-23] MEDS: LINEZOLID 600 MG TABLET PO SCH ×2 (09:05→21:31)
[2020-08-23] MEDS: MAGNESIUM OXIDE 400 MG TABLET PO SCH ×2 (09:06→21:31)
[2020-08-23] MEDS: oxyCODONE/APAP 5/325 1 TAB TABLET PO PRN ×2 (09:06→21:32)
[2020-08-23] MEDS: ENOXAPARIN 40 MG/0.4 ML SYRINGE. SQ SCH ×2 (09:08→21:37)
--- NOTE | 2020-08-23 09:09 | PDOC ---
PROGRESS NOTES Date of Service: DATE: 08/23/20 TIME: 09:08 Chief Complaint Chief Complaint VTE Prophylaxis Ordered VTE Prophylaxis Devices: No VTE Pharmacological Prophylaxi: Yes Assessment/Plan Assessment/Plan Impression: Cellulitis LEFT LOWER LEG, SPIDER BITE POA MORBID OBESITY Sepsis electrolyte imbalance on replacement KEARNS Depression ADMITTED continue Zyvox an Rocephin IV FLUID SUPPORT BLOOD CULTURE DT booster if needed dvt prophylaxis D/W RN Justifications for Admission Justifications for Admission General Conditions Elevated Lactate?: Yes Justification for admission: Patient has tachycardia (> 100 beats per minute) or hypotension (SBP < 90 mm Hg) leading to inadequate systemic perfusion as indicated by lactate of greater or equal to 2.5 mmol/L. Other justification for admit: cellulitis Other Justification History of Present Illness History of Present Illness dentification/Chief Complaint Chief Complaint SEEN IN ER WITH SEPSIS 50 year old female who presents with Thursday she states she mowed the grass. She states that she noticed what looked like a bug bite to the back of the left lower leg the calf area. She states redness then developed quickly and has spread from the anterior and posterior of the leg with 2+ swelling. She states that she had taken her temperature and it was 104 08/21 Upon arrival her temperature was 99.2 IN ER . She states when she is just sitting the pain is a 4 out of 10. She states when she is up and moving is a sharp throbbing 8 out of 10. She states the pain does radiate up her leg. She is able to ambulate. denies any numbness or tingling, chest pain, shortness of air, cough, abdominal pain, nausea, vomiting, diarrhea, body aches, headache, dizziness. Patient has a history of cirrhosis, depression, gastric bypass. Past Medical History Past Medical History Past Medical History Past Medical History: Depression, Other Additional Past Medical Histor: KEARNS/CIRRHOSIS Past Surgical History: Appendectomy, Gastric Bypass, Tonsillectomy Smoking Status: Never Smoker Alcohol Use: Occasionally fhx obesity Family History Family History: Hypertension Social History Smoke: No ALCOHOL: none Drugs: None Current Problem List Problem List Problems Medical Problems: (1) Cellulitis Status: Acute (2) Sepsis Status: Acute Vitals Vitals Vital Signs Date Time Temp Pulse Resp B/P (MAP) Pulse Ox O2 Delivery O2 Flow Rate FiO2 08/23/20 07:00 98.2 80 17 142/68 (92) 99 Room Air 98.2 Physical Exam General: Alert, Oriented X3, Cooperative, No acute distress Heart: Regular rate, No murmurs Abdomen: Normal bowel sounds, Soft Extremities: No clubbing, No cyanosis Assessment and Plan Assessmemt and Plan Problems Medical Problems: (1) Cellulitis Status: Acute (2) Sepsis Status: Acute Comment Review of Relevant I have reviewed the following items rocky (where applicable) has been applied. Labs Laboratory Tests Test 08/21/20 19:15 08/22/20 01:28 White Blood Count 24.4 x10^3/uL (4.0-11.0) 17.3 x10^3/uL (4.0-11.0) Red Blood Count 4.65 x10^6/uL (3.50-5.40) 3.77 x10^6/uL (3.50-5.40) Hemoglobin 12.0 g/dL (12.0-15.5) 9.6 g/dL (12.0-15.5) Hematocrit 37.8 % (36.0-47.0) 30.4 % (36.0-47.0) Mean Corpuscular Volume 81 fL (79-100) 81 fL (79-100) Mean Corpuscular Hemoglobin 26 pg (25-35) 26 pg (25-35) Mean Corpuscular Hemoglobin Concent 32 g/dL (31-37) 32 g/dL (31-37) Red Cell Distribution Width 18.7 % (11.5-14.5) 18.5 % (11.5-14.5) Platelet Count 302 x10^3/uL (140-400) 223 x10^3/uL (140-400) Neutrophils (%) (Auto) 90 % (31-73) 87 % (31-73) Lymphocytes (%) (Auto) 5 % (24-48) 6 % (24-48) Monocytes (%) (Auto) 5 % (0-9) 7 % (0-9) Eosinophils (%) (Auto) 0 % (0-3) 0 % (0-3) Basophils (%) (Auto) 0 % (0-3) 0 % (0-3) Neutrophils # (Auto) 21.8 x10^3/uL (1.8-7.7) 14.9 x10^3/uL (1.8-7.7) Lymphocytes # (Auto) 1.2 x10^3/uL (1.0-4.8) 1.1 x10^3/uL (1.0-4.8) Monocytes # (Auto) 1.2 x10^3/uL (0.0-1.1) 1.1 x10^3/uL (0.0-1.1) Eosinophils # (Auto) 0.0 x10^3/uL (0.0-0.7) 0.0 x10^3/uL (0.0-0.7) Basophils # (Auto) 0.1 x10^3/uL (0.0-0.2) 0.1 x10^3/uL (0.0-0.2) Segmented Neutrophils % 64 % (35-66) Band Neutrophils % 19 % (0-9) Lymphocytes % 11 % (24-48) Monocytes % 6 % (0-10) Platelet Estimate Adequate (ADEQUATE) Prothrombin Time 15.2 SEC (11.7-14.0) Prothromb Time International Ratio 1.2 (0.8-1.1) Sodium Level 131 mmol/L (136-145) 134 mmol/L (136-145) Potassium Level 3.8 mmol/L (3.5-5.1) 3.9 mmol/L (3.5-5.1) Chloride Level 92 mmol/L (98-107) 98 mmol/L (98-107) Carbon Dioxide Level 31 mmol/L (21-32) 27 mmol/L (21-32) Anion Gap 8 (6-14) 9 (6-14) Blood Urea Nitrogen 14 mg/dL (7-20) 12 mg/dL (7-20) Creatinine 0.9 mg/dL (0.6-1.0) 0.7 mg/dL (0.6-1.0) Estimated GFR (Cockcroft-Gault) 66.3 88.6 BUN/Creatinine Ratio 16 (6-20) Glucose Level 96 mg/dL (70-99) 82 mg/dL (70-99) Lactic Acid Level 2.1 mmol/L (0.4-2.0) 0.7 mmol/L (0.4-2.0) Calcium Level 9.2 mg/dL (8.5-10.1) 7.7 mg/dL (8.5-10.1) Total Bilirubin 0.9 mg/dL (0.2-1.0) Aspartate Amino Transf (AST/SGOT) 53 U/L (15-37) Alanine Aminotransferase (ALT/SGPT) 39 U/L (14-59) Alkaline Phosphatase 157 U/L (46-116) Total Protein 8.7 g/dL (6.4-8.2) Albumin 2.6 g/dL (3.4-5.0) Albumin/Globulin Ratio 0.4 (1.0-1.7) Phosphorus Level 1.7 mg/dL (2.6-4.7) Magnesium Level 1.6 mg/dL (1.8-2.4) Microbiology 08/21/20 Blood Culture - Preliminary, Resulted NO GROWTH AFTER 1 DAY Medications Current Medications Sodium Chloride 1,000 ml @ 1,000 mls/hr 1X ONCE IV Last administered on 08/21/20at 20:19; Start 08/21/20 at 20:00; Stop 08/21/20 at 20:59; Status DC Sodium Chloride 1,000 ml @ 1,000 mls/hr 1X ONCE IV Last administered on 08/21/20at 20:20; Start 08/21/20 at 20:00; Stop 08/21/20 at 20:59; Status DC Vancomycin HCl 250 ml @ 250 mls/hr 1X ONCE IV ; Start 08/21/20 at 20:00; Stop 08/21/20 at 20:59; Status UNV Sodium Chloride 1,000 ml @ 125 mls/hr 1X ONCE IV Last administered on 08/21/20at 20:20; Start 08/21/20 at 20:00; Stop 08/22/20 at 03:59; Status DC Vancomycin HCl 2 gm/Sodium Chloride 500 ml @ 250 mls/hr 1X ONCE IV Last administered on 08/21/20at 20:19; Start 08/21/20 at 20:15; Stop 08/21/20 at 22:14; Status DC Fentanyl Citrate (Fentanyl 2ml Vial) 50 mcg PRN Q1HR PRN IV PAIN Last administered on 08/22/20at 14:11; Start 08/21/20 at 20:30; Stop 08/22/20 at 20:29; Status DC Sennosides (Senna) 17.2 mg PRN BID PRN PO CONSTIPATION; Start 08/21/20 at 22:30 Docusate Sodium (Colace) 100 mg PRN DAILY PRN PO HARD STOOLS; Start 08/21/20 at 22:30; Stop 08/22/20 at 11:13; Status DC Ondansetron HCl (Zofran) 4 mg PRN Q6HRS PRN IVP NAUSEA/VOMITING; Start 08/21/20 at 22:30; Stop 08/22/20 at 11:13; Status DC Potassium Chloride (Klor-Con) 40 meq 1X PRN PO PER PROTOCOL; Start 08/21/20 at 22:30 Magnesium Oxide (Magnesium Oxide) 400 mg BID PO Last administered on 08/22/20at 21:03; Start 08/22/20 at 09:00; Stop 08/23/20 at 21:01 Potassium Chloride/Water 100 ml @ 100 mls/hr Q1H IV Last administered on 08/22/20at 00:04; Start 08/21/20 at 22:30; Stop 08/22/20 at 02:29; Status DC Magnesium Sulfate 50 ml @ 25 mls/hr Q24H IV Last administered on 08/22/20at 21:04; Start 08/21/20 at 22:30; Stop 08/24/20 at 00:29 Potassium Chloride/Water 100 ml @ 100 mls/hr PRN Q1HR PRN IV low k Last administered on 08/22/20at 01:07; Start 08/21/20 at 22:30 Dextrose (Dextrose 50%-Water Syringe) 12.5 gm PRN Q15MIN PRN IV SEE COMMENTS; Start 08/21/20 at 22:30 Sodium Chloride 1,000 ml @ 125 mls/hr Q8H IV Last administered on 08/22/20at 00:03; Start 08/21/20 at 22:30; Stop 08/22/20 at 11:13; Status DC Acetaminophen (Tylenol) 650 mg PRN Q4HRS PRN PO TEMP OVER 100.4F OR MILD PAIN; Start 08/21/20 at 22:30; Stop 08/22/20 at 11:12; Status DC Vancomycin HCl (Vanco Per Pharmacy) 1 each PRN DAILY PRN MC SEE COMMENTS Last administered on 08/22/20at 11:44; Start 08/21/20 at 22:30; Stop 08/22/20 at 13:40; Status DC Enoxaparin Sodium (Lovenox 40mg Syringe) 40 mg Q24H SQ Last administered on 08/22/20at 04:05; Start 08/21/20 at 22:30; Stop 08/22/20 at 11:12; Status DC Vancomycin HCl 1.5 gm/Sodium Chloride 500 ml @ 250 mls/hr Q12H IV Last administered on 08/22/20at 09:22; Start 08/22/20 at 08:30; Stop 08/22/20 at 13:40; Status DC Vancomycin HCl (Vancomycin Trough Level) 1 each 1X ONCE MC ; Start 08/23/20 at 08:00; Stop 08/22/20 at 13:40; Status DC Influenza Virus Vaccine Quadrival (Fluzone Quad Syringe) 0.5 ml ONCE ONCE VAX IM Last administered on 08/22/20at 09:24; Start 08/22/20 at 09:00; Stop 08/22/20 at 09:01; Status DC Potassium Chloride (Klor-Con) 40 meq 1X ONCE PO ; Start 08/22/20 at 11:00; Stop 08/22/20 at 11:01; Status UNV Potassium Bicarbonate (Potassium Effervescent Tablet) 40 meq 1X ONCE FT ; Start 08/22/20 at 11:00; Stop 08/22/20 at 11:01; Status UNV Magnesium Oxide (Magnesium Oxide) 400 mg BID PO ; Start 08/22/20 at 21:00; Stop 08/24/20 at 09:01; Status UNV Potassium Chloride/Water 100 ml @ 100 mls/hr Q1H IV ; Start 08/22/20 at 11:00; Stop 08/22/20 at 14:59; Status UNV Magnesium Sulfate 50 ml @ 25 mls/hr Q24H IV ; Start 08/22/20 at 11:00; Stop 08/24/20 at 12:59; Status UNV Potassium Phos/ Sodium Phos (Phos-Nak) 1 pkt BID PO ; Start 08/22/20 at 21:00; Stop 08/23/20 at 09:01; Status UNV Potassium Bicarbonate (Potassium Effervescent Tablet) 40 meq Q4H PO ; Start 08/22/20 at 11:00; Stop 08/22/20 at 15:01; Status UNV Potassium Chloride/Water 100 ml @ 100 mls/hr Q1H IV ; Start 08/22/20 at 11:00; Stop 08/22/20 at 14:59; Status UNV Sodium Chloride (Normal Saline Flush) 3 ml QSHIFT PRN IV AFTER MEDS AND BLOOD DRAWS; Start 08/22/20 at 11:00 Sodium Chloride 1,000 ml @ 100 mls/hr Q10H IV Last administered on 08/22/20at 21:04; Start 08/22/20 at 10:59 Ondansetron HCl (Zofran) 4 mg PRN Q4HRS PRN IV NAUSEA/VOMITING; Start 08/22/20 at 11:00 Zolpidem Tartrate (Ambien) 5 mg PRN QHS PRN PO INSOMNIA; Start 08/22/20 at 11:00 Acetaminophen (Tylenol) 650 mg PRN Q4HRS PRN PO TEMP OVER 100.4F OR MILD PAIN; Start 08/22/20 at 11:00 Al Hydroxide/Mg Hydroxide (Mylanta Plus Xs) 30 ml PRN DAILY PRN PO HEARTBURN / GAS; Start 08/22/20 at 11:00 Clonidine HCl (Catapres) 0.1 mg PRN Q6HRS PRN PO SBP>160 OR DBP>90; Start 08/22/20 at 11:00 Sodium Monofluorophosphate (Fleet Adult) 133 ml PRN DAILY PRN NM CONSTIPATION; Start 08/22/20 at 11:00 Diphenhydramine HCl (Benadryl) 25 mg PRN Q4HRS PRN IVP ITCHING; Start 08/22/20 at 11:00 Docusate Sodium (Colace) 100 mg PRN BID PRN PO HARD STOOLS; Start 08/22/20 at 11:00 Albuterol Sulfate (Ventolin Neb Soln) 2.5 mg PRN Q4HRS PRN NEB SHORTNESS OF BREATH; Start 08/22/20 at 11:00 Guaifenesin (Robitussin) 200 mg PRN Q4HRS PRN PO COUGH; Start 08/22/20 at 11:00 Lorazepam (Ativan) 0.5 mg PRN Q4HRS PRN PO ANXIETY / AGITATION; Start 08/22/20 at 11:00 Enoxaparin Sodium (Lovenox 40mg Syringe) 40 mg Q12H SQ Last administered on at 21:03; Start 08/22/20 at 21:00 Vancomycin HCl (Vanco Per Pharmacy) 1 each PRN DAILY PRN MC SEE COMMENTS; Start 08/22/20 at 11:00; Status Cancel Info (Non-Icu Electrolyte Protocol) 1 ea CONT PRN PRN MC SEE COMMENTS; Start 08/22/20 at 11:15 Lactobacillus Rhamnosus (Culturelle) 1 cap BID PO Last administered on 08/22/20at 21:03; Start 08/22/20 at 12:00 Ceftriaxone Sodium (Rocephin) 2 gm Q24H IVP Last administered on 08/22/20at 15:15; Start 08/22/20 at 15:00 Linezolid (Zyvox) 600 mg BID PO Last administered on 08/22/20at 21:03; Start 08/22/20 at 21:00 Oxycodone/ Acetaminophen (Percocet 5/325) 1 tab PRN Q4HRS PRN PO PAIN Last administered on 08/22/20at 19:47; Start 08/22/20 at 14:45 Active Scripts Active Reported Magnesium (Magnesium Oxide) 500 Mg Capsule 1 Cap PO BID 30 Days Multi Vitamin Daily (Multivitamin) 1 Each Tablet 1 Tab PO DAILY 30 Days Lactulose 20 Gm/30 Ml Solution 45 Ml PO DAILY Calcium Citrate 250 Mg Tablet 1,200 Mg PO DAILY 30 Days Xifaxan (Rifaximin) 550 Mg Tablet 1 Tab PO BID 10 Days Spironolactone 100 Mg Tablet 1 Tab PO DAILY Furosemide 40 Mg Tablet 1 Tab PO DAILY Nadolol 20 Mg Tablet 1 Tab PO DAILY Nortriptyline Hcl 25 Mg Capsule 50 Mg PO QHS Vitals/I & O Vital Sign - Last 24 Hours 08/22/20 08/22/20 08/22/20 08/22/20 10:40 15:01 19:00 19:15 Temp 98.4 97.8 100.9 98.4 97.8 100.9 Pulse 104 97 78 Resp 18 18 16 B/P (MAP) 122/80 (94) 117/69 (85) 152/81 (104) Pulse Ox 96 97 98 O2 Delivery Room Air Room Air Room Air Room Air 08/22/20 08/22/20 08/22/20 08/23/20 19:47 20:45 23:00 03:02 Temp 98.4 98.6 98.4 98.6 Pulse 89 80 Resp 16 16 15 17 B/P (MAP) 164/79 (107) 100/63 (75) Pulse Ox 99 99 O2 Delivery Room Air Room Air Room Air Room Air 08/23/20 07:00 Temp 98.2 98.2 Pulse 80 Resp 17 B/P (MAP) 142/68 (92) Pulse Ox 99 O2 Delivery Room Air Intake and Output 08/22/20 08/22/20 08/23/20 15:00 23:00 07:00 Intake Total 600 ml 1800 ml 410 ml Balance 600 ml 1800 ml 410 ml Justicifation of Admission Dx: Justifications for Admission: Justification of Admission Dx: Yes (cellulitis) SANDI BONNER MD Aug 23, 2020 09:09
[2020-08-23 10:31] LABS: BASO # 0.1 x10^3/uL (0.0-0.2); BASO % 0 % (0-3); EOS # 0.1 x10^3/uL (0.0-0.7); EOS % 1 % (0-3); HEMATOCRIT 33.9 % (36.0-47.0); HEMOGLOBIN 10.6 g/dL (12.0-15.5); LYMPH # 1.2 x10^3/uL (1.0-4.8); LYMPH % 8 % (24-48); MEAN CORPUSCULAR HEMOGLOBIN 26 pg (25-35); MEAN CORPUSCULAR HGB CONC 31 g/dL (31-37); MEAN CORPUSCULAR VOLUME 82 fL (79-100); MONO # 0.8 x10^3/uL (0.0-1.1); MONO % 5 % (0-9); NEUT # 12.1 x10^3/uL (1.8-7.7); NEUT % 85 % (31-73); PLATELET COUNT 305 x10^3/uL (140-400); RED BLOOD COUNT 4.14 x10^6/uL (3.50-5.40); RED CELL DISTRIBUTION WIDTH 18.7 % (11.5-14.5); WHITE BLOOD COUNT 14.2 x10^3/uL (4.0-11.0)
[2020-08-23 10:34] LABS: ALBUMIN/GLOBULIN RATIO 0.4 (1.0-1.7); CALCIUM 8.5 mg/dL (8.5-10.1); CREATININE 0.7 mg/dL (0.6-1.0); GFR 88.6; POTASSIUM 3.3 mmol/L (3.5-5.1); TOTAL BILIRUBIN 0.5 mg/dL (0.2-1.0); TOTAL PROTEIN 7.7 g/dL (6.4-8.2)
[2020-08-23 10:46] VITALS: BP 114/68
--- NOTE | 2020-08-23 10:57 | PDOC ---
Infectious Disease Note Subjective Subjective Leg feels better, less pain and able to bear some weight Fever Tmax 100.9 Denies SOA/N/V/rash ROS ROS as mentioned above Vital Sign Vital Signs Vital Signs Date Time Temp Pulse Resp B/P (MAP) Pulse Ox O2 Delivery O2 Flow Rate FiO2 08/23/20 10:46 98.0 90 17 114/68 (83) 99 Room Air 98.0 Physical Exam PHYSICAL EXAM GENERAL: In bed, alert, smiling HEENT: Pupils equally round, reactive. Normal conjunctivae. Oropharynx pink and moist. Dentures in place. NECK: Supple. LUNGS: Clear to auscultation. HEART: S1, S2. ABDOMEN: Obese, soft, nontender with bowel sounds present. EXTREMITIES: Left lower extremity is warm, but less red and less swollen, + wrinkles. SKIN: Warm to touch. No signs of rash. NEUROLOGIC: Alert and answering questions appropriately. PIV Labs Lab Laboratory Tests Test 08/23/20 08:30 White Blood Count 14.2 x10^3/uL (4.0-11.0) Red Blood Count 4.14 x10^6/uL (3.50-5.40) Hemoglobin 10.6 g/dL (12.0-15.5) Hematocrit 33.9 % (36.0-47.0) Mean Corpuscular Volume 82 fL (79-100) Mean Corpuscular Hemoglobin 26 pg (25-35) Mean Corpuscular Hemoglobin Concent 31 g/dL (31-37) Red Cell Distribution Width 18.7 % (11.5-14.5) Platelet Count 305 x10^3/uL (140-400) Neutrophils (%) (Auto) 85 % (31-73) Lymphocytes (%) (Auto) 8 % (24-48) Monocytes (%) (Auto) 5 % (0-9) Eosinophils (%) (Auto) 1 % (0-3) Basophils (%) (Auto) 0 % (0-3) Neutrophils # (Auto) 12.1 x10^3/uL (1.8-7.7) Lymphocytes # (Auto) 1.2 x10^3/uL (1.0-4.8) Monocytes # (Auto) 0.8 x10^3/uL (0.0-1.1) Eosinophils # (Auto) 0.1 x10^3/uL (0.0-0.7) Basophils # (Auto) 0.1 x10^3/uL (0.0-0.2) Sodium Level 137 mmol/L (136-145) Potassium Level 3.3 mmol/L (3.5-5.1) Chloride Level 100 mmol/L (98-107) Carbon Dioxide Level 27 mmol/L (21-32) Anion Gap 10 (6-14) Blood Urea Nitrogen 8 mg/dL (7-20) Creatinine 0.7 mg/dL (0.6-1.0) Estimated GFR (Cockcroft-Gault) 88.6 BUN/Creatinine Ratio 11 (6-20) Glucose Level 66 mg/dL (70-99) Calcium Level 8.5 mg/dL (8.5-10.1) Phosphorus Level 1.9 mg/dL (2.6-4.7) Total Bilirubin 0.5 mg/dL (0.2-1.0) Aspartate Amino Transf (AST/SGOT) 55 U/L (15-37) Alanine Aminotransferase (ALT/SGPT) 34 U/L (14-59) Alkaline Phosphatase 214 U/L (46-116) Total Protein 7.7 g/dL (6.4-8.2) Albumin 2.0 g/dL (3.4-5.0) Albumin/Globulin Ratio 0.4 (1.0-1.7) Micro Microbiology 08/21/20 Blood Culture - Preliminary, Resulted NO GROWTH AFTER 1 DAY Objective Assessment Severe cellulitis of left leg. US neg DVT. Insect bite suspected. Leukocytosis PCN allergy (hives/trouble breathing) Tolerated amoxicillin 10 yrs ago and believes she's taken cephalexin ok Fever and chills improved since admission Obesity KEARNS Plan Plan of Care Likely strep with fairly rapid onset vs bug bite Leg is looking some better, continue Zyvox an Rocephin WBC trending down Monitor temp Leg elevation. Better. Needs elevation and compression Attending Co-Sign Attending Co-Sign The patient was seen and interviewed as well as examined at the bedside. The chart was reviewed. The case was discussed. Agree with the plan of care. DALE AGUIRRE APRN Aug 23, 2020 10:57 ABHIJIT SOTO MD Aug 23, 2020 13:42
[2020-08-23] MEDS: IV NORMAL SALINE 1000ML BAG 1,000 ML IV SCH ×2 (11:08→21:34)
--- NOTE | 2020-08-23 13:39 | NUR ---
SW following. Spoke with RN and reviewed chart. Spoke with pt again today. Pt reported she is starting to feel better and is hopeful she can discharge home tomorrow. Pt remains on room air and IV abx. SW following.
[2020-08-23 14:40] VITALS: BP 126/72
[2020-08-23] MEDS: cefTRIAXone IV Push 2 GM VIAL. IVP SCH (15:05)
[2020-08-23 19:00] VITALS: BP 115/72
[2020-08-23] MEDS: MAGNESIUM SULFATE 2GM 50 ML IV SCH (21:33)
[2020-08-23 23:04] VITALS: BP 131/76
[2020-08-24 03:08] VITALS: BP 106/64
[2020-08-24] MEDS: IV NORMAL SALINE 1000ML BAG 1,000 ML IV SCH ×3 (05:46→22:59)
[2020-08-24] MEDS: oxyCODONE/APAP 5/325 1 TAB TABLET PO PRN ×2 (05:46→19:40)
[2020-08-24 07:00] VITALS: BP 123/74
--- NOTE | 2020-08-24 08:38 | PDOC ---
PROGRESS NOTES Date of Service: DATE: 08/24/20 TIME: 08:37 Chief Complaint Chief Complaint VTE Prophylaxis Ordered VTE Prophylaxis Devices: No VTE Pharmacological Prophylaxi: Yes Assessment/Plan Assessment/Plan Impression: Cellulitis LEFT LOWER LEG, SPIDER BITE POA MORBID OBESITY Sepsis electrolyte imbalance on replacement KEARNS Depression HYPOKALEMIA ORDERED: BCULT Procedure Result BLOOD CULTURE Preliminary NO GROWTH AFTER 2 DAYS ------ ------ ADMITTED continue Zyvox an Rocephin IV FLUID SUPPORT BLOOD CULTURE DT booster if needed dvt prophylaxis REPLACE K D/W RN Justifications for Admission Justifications for Admission General Conditions Elevated Lactate?: Yes Justification for admission: Patient has tachycardia (> 100 beats per minute) or hypotension (SBP < 90 mm Hg) leading to inadequate systemic perfusion as indicated by lactate of greater or equal to 2.5 mmol/L. Other justification for admit: cellulitis Other Justification History of Present Illness History of Present Illness dentification/Chief Complaint Chief Complaint SEEN IN ER WITH SEPSIS 50 year old female who presents with Thursday she states she mowed the grass. She states that she noticed what looked like a bug bite to the back of the left lower leg the calf area. She states redness then developed quickly and has spread from the anterior and posterior of the leg with 2+ swelling. She states that she had taken her temperature and it was 104 / Upon arrival her temperature was 99.2 IN ER . She states when she is just sitting the pain is a 4 out of 10. She states when she is up and moving is a sharp throbbing 8 out of 10. She states the pain does radiate up her leg. She is able to ambulate. denies any numbness or tingling, chest pain, shortness of air, cough, abdominal pain, nausea, vomiting, diarrhea, body aches, headache, dizziness. Patient has a history of cirrhosis, depression, gastric bypass. Past Medical History Past Medical History Past Medical History Past Medical History: Depression, Other Additional Past Medical Histor: KEARNS/CIRRHOSIS Past Surgical History: Appendectomy, Gastric Bypass, Tonsillectomy Smoking Status: Never Smoker Alcohol Use: Occasionally fhx obesity Family History Family History: Hypertension Social History Smoke: No ALCOHOL: none Drugs: None Current Problem List Problem List Problems Medical Problems: (1) Cellulitis Status: Acute (2) Sepsis Status: Acute Vitals Vitals Vital Signs Date Time Temp Pulse Resp B/P (MAP) Pulse Ox O2 Delivery O2 Flow Rate FiO2 08/24/20 07:27 Room Air 08/24/20 07:00 98.0 71 19 123/74 (90) 99 98.0 Physical Exam Physical Exam GENERAL: In bed, alert, smiling HEENT: Pupils equally round, reactive. Normal conjunctivae. Oropharynx pink and moist. Dentures in place. NECK: Supple. LUNGS: Clear to auscultation. HEART: S1, S2. ABDOMEN: Obese, soft, nontender with bowel sounds present. EXTREMITIES: Left lower extremity is warm, but less red and less swollen, + wrinkles. SKIN: Warm to touch. No signs of rash. NEUROLOGIC: Alert and answering questions appropriately. PIV General: Alert, Oriented X3, Cooperative, No acute distress Heart: Regular rate, Normal S1, Normal S2, No murmurs Abdomen: Normal bowel sounds, Soft Extremities: No clubbing, No cyanosis Assessment and Plan Assessmemt and Plan Problems Medical Problems: (1) Cellulitis Status: Acute (2) Sepsis Status: Acute Comment Review of Relevant I have reviewed the following items rocky (where applicable) has been applied. Labs Laboratory Tests Test 08/23/20 08:30 White Blood Count 14.2 x10^3/uL (4.0-11.0) Red Blood Count 4.14 x10^6/uL (3.50-5.40) Hemoglobin 10.6 g/dL (12.0-15.5) Hematocrit 33.9 % (36.0-47.0) Mean Corpuscular Volume 82 fL (79-100) Mean Corpuscular Hemoglobin 26 pg (25-35) Mean Corpuscular Hemoglobin Concent 31 g/dL (31-37) Red Cell Distribution Width 18.7 % (11.5-14.5) Platelet Count 305 x10^3/uL (140-400) Neutrophils (%) (Auto) 85 % (31-73) Lymphocytes (%) (Auto) 8 % (24-48) Monocytes (%) (Auto) 5 % (0-9) Eosinophils (%) (Auto) 1 % (0-3) Basophils (%) (Auto) 0 % (0-3) Neutrophils # (Auto) 12.1 x10^3/uL (1.8-7.7) Lymphocytes # (Auto) 1.2 x10^3/uL (1.0-4.8) Monocytes # (Auto) 0.8 x10^3/uL (0.0-1.1) Eosinophils # (Auto) 0.1 x10^3/uL (0.0-0.7) Basophils # (Auto) 0.1 x10^3/uL (0.0-0.2) Sodium Level 137 mmol/L (136-145) Potassium Level 3.3 mmol/L (3.5-5.1) Chloride Level 100 mmol/L (98-107) Carbon Dioxide Level 27 mmol/L (21-32) Anion Gap 10 (6-14) Blood Urea Nitrogen 8 mg/dL (7-20) Creatinine 0.7 mg/dL (0.6-1.0) Estimated GFR (Cockcroft-Gault) 88.6 BUN/Creatinine Ratio 11 (6-20) Glucose Level 66 mg/dL (70-99) Calcium Level 8.5 mg/dL (8.5-10.1) Phosphorus Level 1.9 mg/dL (2.6-4.7) Total Bilirubin 0.5 mg/dL (0.2-1.0) Aspartate Amino Transf (AST/SGOT) 55 U/L (15-37) Alanine Aminotransferase (ALT/SGPT) 34 U/L (14-59) Alkaline Phosphatase 214 U/L (46-116) Creatine Kinase 20 U/L (26-192) Total Protein 7.7 g/dL (6.4-8.2) Albumin 2.0 g/dL (3.4-5.0) Albumin/Globulin Ratio 0.4 (1.0-1.7) Microbiology 08/21/20 Blood Culture - Preliminary, Resulted NO GROWTH AFTER 2 DAYS Medications Current Medications Sodium Chloride 1,000 ml @ 1,000 mls/hr 1X ONCE IV Last administered on 08/21/20at 20:19; Start 08/21/20 at 20:00; Stop 08/21/20 at 20:59; Status DC Sodium Chloride 1,000 ml @ 1,000 mls/hr 1X ONCE IV Last administered on 08/21/20at 20:20; Start 08/21/20 at 20:00; Stop 08/21/20 at 20:59; Status DC Vancomycin HCl 250 ml @ 250 mls/hr 1X ONCE IV ; Start 08/21/20 at 20:00; Stop 08/21/20 at 20:59; Status UNV Sodium Chloride 1,000 ml @ 125 mls/hr 1X ONCE IV Last administered on 08/21/20at 20:20; Start 08/21/20 at 20:00; Stop 08/22/20 at 03:59; Status DC Vancomycin HCl 2 gm/Sodium Chloride 500 ml @ 250 mls/hr 1X ONCE IV Last administered on 08/21/20at 20:19; Start 08/21/20 at 20:15; Stop 08/21/20 at 22:14; Status DC Fentanyl Citrate (Fentanyl 2ml Vial) 50 mcg PRN Q1HR PRN IV PAIN Last administered on 08/22/20at 14:11; Start 08/21/20 at 20:30; Stop 08/22/20 at 20:29; Status DC Sennosides (Senna) 17.2 mg PRN BID PRN PO CONSTIPATION; Start 08/21/20 at 22:30 Docusate Sodium (Colace) 100 mg PRN DAILY PRN PO HARD STOOLS; Start 08/21/20 at 22:30; Stop 08/22/20 at 11:13; Status DC Ondansetron HCl (Zofran) 4 mg PRN Q6HRS PRN IVP NAUSEA/VOMITING; Start 08/21/20 at 22:30; Stop 08/22/20 at 11:13; Status DC Potassium Chloride (Klor-Con) 40 meq 1X PRN PO PER PROTOCOL; Start 08/21/20 at 22:30 Magnesium Oxide (Magnesium Oxide) 400 mg BID PO Last administered on 08/23/20at 21:31; Start 08/22/20 at 09:00; Stop 08/23/20 at 21:01; Status DC Potassium Chloride/Water 100 ml @ 100 mls/hr Q1H IV Last administered on 08/22/20at 00:04; Start 08/21/20 at 22:30; Stop 08/22/20 at 02:29; Status DC Magnesium Sulfate 50 ml @ 25 mls/hr Q24H IV Last administered on 08/23/20at 21:33; Start 08/21/20 at 22:30; Stop 08/24/20 at 00:29; Status DC Potassium Chloride/Water 100 ml @ 100 mls/hr PRN Q1HR PRN IV low k Last administered on 08/22/20at 01:07; Start 08/21/20 at 22:30 Dextrose (Dextrose 50%-Water Syringe) 12.5 gm PRN Q15MIN PRN IV SEE COMMENTS; Start 08/21/20 at 22:30 Sodium Chloride 1,000 ml @ 125 mls/hr Q8H IV Last administered on 08/22/20at 00:03; Start 08/21/20 at 22:30; Stop 08/22/20 at 11:13; Status DC Acetaminophen (Tylenol) 650 mg PRN Q4HRS PRN PO TEMP OVER 100.4F OR MILD PAIN; Start 08/21/20 at 22:30; Stop 08/22/20 at 11:12; Status DC Vancomycin HCl (Vanco Per Pharmacy) 1 each PRN DAILY PRN MC SEE COMMENTS Last administered on 08/22/20at 11:44; Start 08/21/20 at 22:30; Stop 08/22/20 at 13:40; Status DC Enoxaparin Sodium (Lovenox 40mg Syringe) 40 mg Q24H SQ Last administered on 08/22/20at 04:05; Start 08/21/20 at 22:30; Stop 08/22/20 at 11:12; Status DC Vancomycin HCl 1.5 gm/Sodium Chloride 500 ml @ 250 mls/hr Q12H IV Last administered on 08/22/20at 09:22; Start 08/22/20 at 08:30; Stop 08/22/20 at 13:40; Status DC Vancomycin HCl (Vancomycin Trough Level) 1 each 1X ONCE MC ; Start 08/23/20 at 08:00; Stop 08/22/20 at 13:40; Status DC Influenza Virus Vaccine Quadrival (Fluzone Quad Syringe) 0.5 ml ONCE ONCE VAX IM Last administered on 08/22/20at 09:24; Start 08/22/20 at 09:00; Stop 08/22/20 at 09:01; Status DC Potassium Chloride (Klor-Con) 40 meq 1X ONCE PO ; Start 08/22/20 at 11:00; Sto p 08/22/20 at 11:01; Status UNV Potassium Bicarbonate (Potassium Effervescent Tablet) 40 meq 1X ONCE FT ; Start 08/22/20 at 11:00; Stop 08/22/20 at 11:01; Status UNV Magnesium Oxide (Magnesium Oxide) 400 mg BID PO ; Start 08/22/20 at 21:00; Stop 08/24/20 at 09:01; Status UNV Potassium Chloride/Water 100 ml @ 100 mls/hr Q1H IV ; Start 08/22/20 at 11:00; Stop 08/22/20 at 14:59; Status UNV Magnesium Sulfate 50 ml @ 25 mls/hr Q24H IV ; Start 08/22/20 at 11:00; Stop 08/24/20 at 12:59; Status UNV Potassium Phos/ Sodium Phos (Phos-Nak) 1 pkt BID PO ; Start 08/22/20 at 21:00; Stop 08/23/20 at 09:01; Status UNV Potassium Bicarbonate (Potassium Effervescent Tablet) 40 meq Q4H PO ; Start 08/22/20 at 11:00; Stop 08/22/20 at 15:01; Status UNV Potassium Chloride/Water 100 ml @ 100 mls/hr Q1H IV ; Start 08/22/20 at 11:00; Stop 08/22/20 at 14:59; Status UNV Sodium Chloride (Normal Saline Flush) 3 ml QSHIFT PRN IV AFTER MEDS AND BLOOD DRAWS; Start 08/22/20 at 11:00 Sodium Chloride 1,000 ml @ 100 mls/hr Q10H IV Last administered on 08/24/20at 05:46; Start 08/22/20 at 10:59 Ondansetron HCl (Zofran) 4 mg PRN Q4HRS PRN IV NAUSEA/VOMITING; Start 08/22/20 at 11:00 Zolpidem Tartrate (Ambien) 5 mg PRN QHS PRN PO INSOMNIA; Start 08/22/20 at 11:00 Acetaminophen (Tylenol) 650 mg PRN Q4HRS PRN PO TEMP OVER 100.4F OR MILD PAIN; Start 08/22/20 at 11:00 Al Hydroxide/Mg Hydroxide (Mylanta Plus Xs) 30 ml PRN DAILY PRN PO HEARTBURN / GAS; Start 08/22/20 at 11:00 Clonidine HCl (Catapres) 0.1 mg PRN Q6HRS PRN PO SBP>160 OR DBP>90; Start 08/22/20 at 11:00 Sodium Monofluorophosphate (Fleet Adult) 133 ml PRN DAILY PRN [place] CONSTIPATION; Start 08/22/20 at 11:00 Diphenhydramine HCl (Benadryl) 25 mg PRN Q4HRS PRN IVP ITCHING; Start 08/22/20 at 11:00 Docusate Sodium (Colace) 100 mg PRN BID PRN PO HARD STOOLS; Start 08/22/20 at 11:00 Albuterol Sulfate (Ventolin Neb Soln) 2.5 mg PRN Q4HRS PRN NEB SHORTNESS OF BREATH; Start 08/22/20 at 11:00 Guaifenesin (Robitussin) 200 mg PRN Q4HRS PRN PO COUGH; Start 08/22/20 at 11:00 Lorazepam (Ativan) 0.5 mg PRN Q4HRS PRN PO ANXIETY / AGITATION; Start 08/22/20 at 11:00 Enoxaparin Sodium (Lovenox 40mg Syringe) 40 mg Q12H SQ Last administered on 08/23/20at 21:37; Start 08/22/20 at 21:00 Vancomycin HCl (Vanco Per Pharmacy) 1 each PRN DAILY PRN MC SEE COMMENTS; Start 08/22/20 at 11:00; Status Cancel Info (Non-Icu Electrolyte Protocol) 1 ea CONT PRN PRN MC SEE COMMENTS; Start 08/22/20 at 11:15 Lactobacillus Rhamnosus (Culturelle) 1 cap BID PO Last administered on 08/23/20at 21:31; Start 08/22/20 at 12:00 Ceftriaxone Sodium (Rocephin) 2 gm Q24H IVP Last administered on 08/23/20at 15:05; Start 08/22/20 at 15:00 Linezolid (Zyvox) 600 mg BID PO Last administered on 08/23/20at 21:31; Start 08/22/20 at 21:00 Oxycodone/ Acetaminophen (Percocet 5/325) 1 tab PRN Q4HRS PRN PO PAIN Last administered on 08/24/20at 05:46; Start 08/22/20 at 14:45 Active Scripts Active Reported Magnesium (Magnesium Oxide) 500 Mg Capsule 1 Cap PO BID 30 Days Multi Vitamin Daily (Multivitamin) 1 Each Tablet 1 Tab PO DAILY 30 Days Lactulose 20 Gm/30 Ml Solution 45 Ml PO DAILY Calcium Citrate 250 Mg Tablet 1,200 Mg PO DAILY 30 Days Xifaxan (Rifaximin) 550 Mg Tablet 1 Tab PO BID 10 Days Spironolactone 100 Mg Tablet 1 Tab PO DAILY Furosemide 40 Mg Tablet 1 Tab PO DAILY Nadolol 20 Mg Tablet 1 Tab PO DAILY Nortriptyline Hcl 25 Mg Capsule 50 Mg PO QHS Vitals/I & O Vital Sign - Last 24 Hours 08/23/20 08/23/20 08/23/20 08/23/20 09:06 10:46 11:08 14:40 Temp 98.0 98.0 98.0 98.0 Pulse 90 80 Resp 17 17 B/P (MAP) 114/68 (83) 126/72 (90) Pulse Ox 99 99 O2 Delivery Room Air Room Air Room Air Room Air 08/23/20 08/23/20 08/23/20 08/23/20 19:00 20:00 21:32 22:32 Temp 98.4 98.4 Pulse 93 Resp 18 B/P (MAP) 115/72 (86) Pulse Ox 96 96 98 O2 Delivery Room Air Room Air Room Air Room Air 08/23/20 08/24/20 08/24/20 08/24/20 23:04 03:08 05:46 07:00 Temp 98.9 97.4 98.0 98.9 97.4 98.0 Pulse 85 78 71 Resp 19 B/P (MAP) 131/76 (94) 106/64 (78) 123/74 (90) Pulse Ox 98 98 98 99 O2 Delivery Room Air Room Air Room Air Room Air 08/24/20 07:27 O2 Delivery Room Air Intake and Output 08/23/20 08/23/20 08/24/20 15:00 23:00 07:00 Intake Total 600 ml 300 ml Balance 600 ml 300 ml Justicifation of Admission Dx: Justifications for Admission: Justification of Admission Dx: Yes (cellulitis) SANDI BONNER MD Aug 24, 2020 08:38
[2020-08-24] MEDS: ENOXAPARIN 40 MG/0.4 ML SYRINGE. SQ SCH ×2 (09:30→19:41)
[2020-08-24] MEDS: LINEZOLID 600 MG TABLET PO SCH ×2 (09:30→19:40)
[2020-08-24] MEDS: LACTOBACILLUS RHAMNOSUS GG 1 CAPSULE. PO SCH ×2 (09:30→19:40)
--- NOTE | 2020-08-24 09:37 | NUR ---
SW following. Discussed with RN, pt from home, room air, cardiac diet. Per Yahaira (ELLYN) note, pt wanting to return home. Pt still on IV rocephin. RN advised no SW needs, possible discharge home in the next day or two. SW will continue to follow.
[2020-08-24 10:38] VITALS: BP 117/72
--- NOTE | 2020-08-24 11:00 | PDOC ---
Infectious Disease Note Subjective Subjective c/o leg pain when getting out of bed. Walking more No fevers last 24 hrs Denies SOA/N/V/rash ROS ROS as mentioned above Vital Sign Vital Signs Vital Signs Date Time Temp Pulse Resp B/P (MAP) Pulse Ox O2 Delivery O2 Flow Rate FiO2 08/24/20 10:38 97.9 85 19 117/72 (87) 99 Room Air 97.9 Physical Exam PHYSICAL EXAM GENERAL: In chair, elevating left leg, alert, smiling HEENT: Anicteric. Pupils equal, Oropharynx pink and moist. Dentures in place. NECK: Supple. LUNGS: Clear to auscultation. HEART: S1, S2. ABDOMEN: Obese, soft, nontender with bowel sounds present. EXTREMITIES: Left lower extremity is swollen, warm with circumferential redness from foot area to the knee and medial thigh. Some wrinkles A small puncture-like wound noted on the back of the calf. No drainage. + t urbid saddle and side wire stitcher SKIN: Warm to touch. No signs of rash. NEUROLOGIC: Alert and answering questions appropriately. PIV Labs Lab Laboratory Tests Test 08/24/20 08:15 Magnesium Level 2.0 mg/dL (1.8-2.4) Micro 08/21/20 Blood Culture - Preliminary, Resulted NO GROWTH AFTER 2 DAY Objective Assessment Severe cellulitis of left leg. US neg DVT. Insect bite suspected. Leukocytosis PCN allergy (hives/trouble breathing) Tolerated amoxicillin 10 yrs ago and believes she's taken cephalexin ok Fever and chills improved since admission Obesity KEARNS Plan Plan of Care Likely strep with fairly rapid onset vs bug bite Leg is looking some better, continue Zyvox and Rocephin Probiotics WBC trending down Monitor temp Leg elevation. Improving - likely home 08/25 Cont elevation. Kallies DALE Sherwood APRN Aug 24, 2020 11:00 ABHIJIT SOTO MD Aug 24, 2020 12:58
[2020-08-24] MEDS ORDERED: POTASSIUM CHLORIDE 20 MEQ TABLET.ER. PO ONE (11:15)
[2020-08-24] MEDS: cefTRIAXone IV Push 2 GM VIAL. IVP SCH (14:30)
[2020-08-24 15:00] VITALS: BP 120/69
[2020-08-24 19:00] VITALS: BP 135/87
[2020-08-24 23:00] VITALS: BP 119/70
[2020-08-25 03:00] VITALS: BP 112/69
[2020-08-25 07:17] LABS: BASO # 0.1 x10^3/uL (0.0-0.2); BASO % 1 % (0-3); EOS # 0.2 x10^3/uL (0.0-0.7); EOS % 3 % (0-3); HEMATOCRIT 31.1 % (36.0-47.0); HEMOGLOBIN 9.7 g/dL (12.0-15.5); LYMPH # 1.1 x10^3/uL (1.0-4.8); LYMPH % 16 % (24-48); MEAN CORPUSCULAR HEMOGLOBIN 25 pg (25-35); MEAN CORPUSCULAR HGB CONC 31 g/dL (31-37); MEAN CORPUSCULAR VOLUME 81 fL (79-100); MONO # 0.6 x10^3/uL (0.0-1.1); MONO % 8 % (0-9); NEUT # 4.9 x10^3/uL (1.8-7.7); NEUT % 72 % (31-73); PLATELET COUNT 217 x10^3/uL (140-400); RED BLOOD COUNT 3.83 x10^6/uL (3.50-5.40); RED CELL DISTRIBUTION WIDTH 19.1 % (11.5-14.5); WHITE BLOOD COUNT 6.8 x10^3/uL (4.0-11.0)
[2020-08-25] MEDS: IV NORMAL SALINE 1000ML BAG 1,000 ML IV SCH (07:41)
[2020-08-25 07:45] LABS: ALBUMIN 1.8 g/dL (3.4-5.0); ALBUMIN/GLOBULIN RATIO 0.4 (1.0-1.7); CALCIUM 8.4 mg/dL (8.5-10.1); CREATININE 0.7 mg/dL (0.6-1.0); GFR 88.6; POTASSIUM 3.7 mmol/L (3.5-5.1); TOTAL BILIRUBIN 0.3 mg/dL (0.2-1.0); TOTAL PROTEIN 6.9 g/dL (6.4-8.2)
[2020-08-25] MEDS: ENOXAPARIN 40 MG/0.4 ML SYRINGE. SQ SCH (07:46)
[2020-08-25] MEDS: oxyCODONE/APAP 5/325 1 TAB TABLET PO PRN ×2 (07:47→12:42)
[2020-08-25] MEDS: LINEZOLID 600 MG TABLET PO SCH (07:47)
[2020-08-25] MEDS: LACTOBACILLUS RHAMNOSUS GG 1 CAPSULE. PO SCH (07:48)
[2020-08-25 07:59] VITALS: BP 140/78
[2020-08-25] MEDS ORDERED: POTASSIUM CHLORIDE 20 MEQ TABLET.ER. PO SCH (08:00)
--- NOTE | 2020-08-25 08:07 | PDOC ---
Infectious Disease Note Subjective Subjective c/o leg pain when getting out of bed but better. Walking more Eating well No fevers last 24 hrs Denies SOA/N/V/rash ROS ROS o/w neg Vital Sign Vital Signs Vital Signs Date Time Temp Pulse Resp B/P (MAP) Pulse Ox O2 Delivery O2 Flow Rate FiO2 08/25/20 07:47 18 98 Room Air 08/25/20 03:00 97.5 76 112/69 (83) 97.5 Physical Exam PHYSICAL EXAM GENERAL: In bed, elevating left leg, alert, smiling HEENT: Anicteric. Pupils equal, Oropharynx pink and moist. Dentures in place. NECK: Supple. LUNGS: Clear to auscultation. HEART: S1, S2. ABDOMEN: Obese, soft, nontender with bowel sounds present. EXTREMITIES: Left lower extremity is less swollen, warm with circumferential redness from foot area to the knee and medial thigh. No warmth and more wrinkles serous fluid not superficial collection under loosen skin No drainage. 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 No abscess and thigh is better SKIN: Warm to touch. No signs of rash. NEUROLOGIC: Alert and answering questions appropriately. PIV Labs Lab Laboratory Tests Test 08/24/20 08:15 08/25/20 05:55 Magnesium Level 2.0 mg/dL (1.8-2.4) White Blood Count 6.8 x10^3/uL (4.0-11.0) Red Blood Count 3.83 x10^6/uL (3.50-5.40) Hemoglobin 9.7 g/dL (12.0-15.5) Hematocrit 31.1 % (36.0-47.0) Mean Corpuscular Volume 81 fL (79-100) Mean Corpuscular Hemoglobin 25 pg (25-35) Mean Corpuscular Hemoglobin Concent 31 g/dL (31-37) Red Cell Distribution Width 19.1 % (11.5-14.5) Platelet Count 217 x10^3/uL (140-400) Neutrophils (%) (Auto) 72 % (31-73) Lymphocytes (%) (Auto) 16 % (24-48) Monocytes (%) (Auto) 8 % (0-9) Eosinophils (%) (Auto) 3 % (0-3) Basophils (%) (Auto) 1 % (0-3) Neutrophils # (Auto) 4.9 x10^3/uL (1.8-7.7) Lymphocytes # (Auto) 1.1 x10^3/uL (1.0-4.8) Monocytes # (Auto) 0.6 x10^3/uL (0.0-1.1) Eosinophils # (Auto) 0.2 x10^3/uL (0.0-0.7) Basophils # (Auto) 0.1 x10^3/uL (0.0-0.2) Sodium Level 138 mmol/L (136-145) Potassium Level 3.7 mmol/L (3.5-5.1) Chloride Level 105 mmol/L (98-107) Carbon Dioxide Level 25 mmol/L (21-32) Anion Gap 8 (6-14) Blood Urea Nitrogen 4 mg/dL (7-20) Creatinine 0.7 mg/dL (0.6-1.0) Estimated GFR (Cockcroft-Gault) 88.6 BUN/Creatinine Ratio 6 (6-20) Glucose Level 76 mg/dL (70-99) Calcium Level 8.4 mg/dL (8.5-10.1) Phosphorus Level 2.7 mg/dL (2.6-4.7) Total Bilirubin 0.3 mg/dL (0.2-1.0) Aspartate Amino Transf (AST/SGOT) 54 U/L (15-37) Alanine Aminotransferase (ALT/SGPT) 36 U/L (14-59) Alkaline Phosphatase 198 U/L (46-116) Total Protein 6.9 g/dL (6.4-8.2) Albumin 1.8 g/dL (3.4-5.0) Albumin/Globulin Ratio 0.4 (1.0-1.7) Micro Microbiology 08/21/20 Blood Culture - Preliminary, Resulted NO GROWTH AFTER 3 DAYS Objective Assessment Severe cellulitis of left leg. US neg DVT. Insect bite suspected. Leukocytosis - resolved PCN allergy (hives/trouble breathing) Tolerated amoxicillin 10 yrs ago and believes she's taken cephalexin ok Fever and chills improved since admission Obesity KEARNS Plan Plan of Care Improving - ok to d/c home with zyvox/Cefdinir (to start 08/26)for 7 days. Rocephin this am instead of Cefdiinr F/u with Primary Cont elevation/tubigrip ABHIJIT SOTO MD Aug 25, 2020 08:07
[2020-08-25] MEDS ORDERED: cefTRIAXone IV Push 1 GM VIAL. IVP ONE (10:00)
--- NOTE | 2020-08-25 10:14 | PDOC ---
PROGRESS NOTES Date of Service: DATE: 08/25/20 TIME: 10:14 Chief Complaint Chief Complaint VTE Prophylaxis Ordered VTE Prophylaxis Devices: No VTE Pharmacological Prophylaxi: Yes DISCHARGE DX Assessment/Plan Impression: Cellulitis LEFT LOWER LEG, SPIDER BITE POA MORBID OBESITY Sepsis electrolyte imbalance on replacement KEARNS Depression HYPOKALEMIA ORDERED: BCULT Procedure Result BLOOD CULTURE Preliminary NO GROWTH AFTER 2 DAYS ADMITTED continue Zyvox an Rocephin IV FLUID SUPPORT BLOOD CULTURE DT booster if needed dvt prophylaxis REPLACE K d/c home with zyvox/Cefdinir 7 days. Rocephin this am instead of Cefdiinr F/u Primary THURSDAY D/C PLANNING 28 MIN D/W RN Justifications for Admission Justifications for Admission General Conditions Elevated Lactate?: Yes Justification for admission: Patient has tachycardia (> 100 beats per minute) or hypotension (SBP < 90 mm Hg) leading to inadequate systemic perfusion as indicated by lactate of greater or equal to 2.5 mmol/L. Other justification for admit: cellulitis Other Justification History of Present Illness History of Present Illness dentification/Chief Complaint Chief Complaint SEEN IN ER WITH SEPSIS 50 year old female who presents with Thursday she states she mowed the grass. She states that she noticed what looked like a bug bite to the back of the left lower leg the calf area. She states redness then developed quickly and has spread from the anterior and posterior of the leg with 2+ swelling. She states that she had taken her temperature and it was 104 08/21 Upon arrival her temperature was 99.2 IN ER . She states when she is just sitting the pain is a 4 out of 10. She states when she is up and moving is a sharp throbbing 8 out of 10. She states the pain does radiate up her leg. She is able to ambulate. denies any numbness or tingling, chest pain, shortness of air, cough, abdominal pain, nausea, vomiting, diarrhea, body aches, headache, dizziness. Patient has a history of cirrhosis, depression, gastric bypass. Past Medical History Past Medical History Past Medical History Past Medical History: Depression, Other Additional Past Medical Histor: KEARNS/CIRRHOSIS Past Surgical History: Appendectomy, Gastric Bypass, Tonsillectomy Smoking Status: Never Smoker Alcohol Use: Occasionally fhx obesity Family History Family History: Hypertension Social History Smoke: No ALCOHOL: none Drugs: None Current Problem List Problem List Problems Medical Problems: (1) Cellulitis Status: Acute (2) Sepsis Status: Acute Vitals Vitals Vital Signs Date Time Temp Pulse Resp B/P (MAP) Pulse Ox O2 Delivery O2 Flow Rate FiO2 08/25/20 07:59 97.8 80 18 140/78 (98) 99 Room Air 97.8 Physical Exam Physical Exam GENERAL: In bed, elevating left leg, alert, smiling HEENT: Anicteric. Pupils equal, Oropharynx pink and moist. Dentures in place. NECK: Supple. LUNGS: Clear to auscultation. HEART: S1, S2. ABDOMEN: Obese, soft, nontender with bowel sounds present. EXTREMITIES: Left lower extremity is less swollen, warm with circumferential redness from foot area to the knee and medial thigh. No warmth and more wrinkles serous fluid not superficial collection under loosen skin No drainage. 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 No abscess and thigh is better SKIN: Warm to touch. NEUROLOGIC: Alert and answering questions appropriately. PIV General: Alert, Oriented X3, Cooperative, No acute distress Heart: Regular rate, Normal S1, Normal S2, No murmurs Abdomen: Normal bowel sounds, Soft Extremities: No clubbing, No cyanosis Skin: Other (erythema left lower leg less, some blistering noted) Labs LABS SPDESC: NO PCP ORDERED: BCULT Procedure Result BLOOD CULTURE Preliminary NO GROWTH AFTER 3 DAYS Laboratory Tests Test 08/25/20 05:55 White Blood Count 6.8 x10^3/uL (4.0-11.0) Red Blood Count 3.83 x10^6/uL (3.50-5.40) Hemoglobin 9.7 g/dL (12.0-15.5) Hematocrit 31.1 % (36.0-47.0) Mean Corpuscular Volume 81 fL (79-100) Mean Corpuscular Hemoglobin 25 pg (25-35) Mean Corpuscular Hemoglobin Concent 31 g/dL (31-37) Red Cell Distribution Width 19.1 % (11.5-14.5) Platelet Count 217 x10^3/uL (140-400) Neutrophils (%) (Auto) 72 % (31-73) Lymphocytes (%) (Auto) 16 % (24-48) Monocytes (%) (Auto) 8 % (0-9) Eosinophils (%) (Auto) 3 % (0-3) Basophils (%) (Auto) 1 % (0-3) Neutrophils # (Auto) 4.9 x10^3/uL (1.8-7.7) Lymphocytes # (Auto) 1.1 x10^3/uL (1.0-4.8) Monocytes # (Auto) 0.6 x10^3/uL (0.0-1.1) Eosinophils # (Auto) 0.2 x10^3/uL (0.0-0.7) Basophils # (Auto) 0.1 x10^3/uL (0.0-0.2) Sodium Level 138 mmol/L (136-145) Potassium Level 3.7 mmol/L (3.5-5.1) Chloride Level 105 mmol/L (98-107) Carbon Dioxide Level 25 mmol/L (21-32) Anion Gap 8 (6-14) Blood Urea Nitrogen 4 mg/dL (7-20) Creatinine 0.7 mg/dL (0.6-1.0) Estimated GFR (Cockcroft-Gault) 88.6 BUN/Creatinine Ratio 6 (6-20) Glucose Level 76 mg/dL (70-99) Calcium Level 8.4 mg/dL (8.5-10.1) Phosphorus Level 2.7 mg/dL (2.6-4.7) Total Bilirubin 0.3 mg/dL (0.2-1.0) Aspartate Amino Transf (AST/SGOT) 54 U/L (15-37) Alanine Aminotransferase (ALT/SGPT) 36 U/L (14-59) Alkaline Phosphatase 198 U/L (46-116) Total Protein 6.9 g/dL (6.4-8.2) Albumin 1.8 g/dL (3.4-5.0) Albumin/Globulin Ratio 0.4 (1.0-1.7) Assessment and Plan Assessmemt and Plan Problems Medical Problems: (1) Cellulitis Status: Acute (2) Sepsis Status: Acute Comment Review of Relevant I have reviewed the following items rocky (where applicable) has been applied. Labs Laboratory Tests Test 08/24/20 08:15 08/25/20 05:55 Magnesium Level 2.0 mg/dL (1.8-2.4) White Blood Count 6.8 x10^3/uL (4.0-11.0) Red Blood Count 3.83 x10^6/uL (3.50-5.40) Hemoglobin 9.7 g/dL (12.0-15.5) Hematocrit 31.1 % (36.0-47.0) Mean Corpuscular Volume 81 fL (79-100) Mean Corpuscular Hemoglobin 25 pg (25-35) Mean Corpuscular Hemoglobin Concent 31 g/dL (31-37) Red Cell Distribution Width 19.1 % (11.5-14.5) Platelet Count 217 x10^3/uL (140-400) Neutrophils (%) (Auto) 72 % (31-73) Lymphocytes (%) (Auto) 16 % (24-48) Monocytes (%) (Auto) 8 % (0-9) Eosinophils (%) (Auto) 3 % (0-3) Basophils (%) (Auto) 1 % (0-3) Neutrophils # (Auto) 4.9 x10^3/uL (1.8-7.7) Lymphocytes # (Auto) 1.1 x10^3/uL (1.0-4.8) Monocytes # (Auto) 0.6 x10^3/uL (0.0-1.1) Eosinophils # (Auto) 0.2 x10^3/uL (0.0-0.7) Basophils # (Auto) 0.1 x10^3/uL (0.0-0.2) Sodium Level 138 mmol/L (136-145) Potassium Level 3.7 mmol/L (3.5-5.1) Chloride Level 105 mmol/L (98-107) Carbon Dioxide Level 25 mmol/L (21-32) Anion Gap 8 (6-14) Blood Urea Nitrogen 4 mg/dL (7-20) Creatinine 0.7 mg/dL (0.6-1.0) Estimated GFR (Cockcroft-Gault) 88.6 BUN/Creatinine Ratio 6 (6-20) Glucose Level 76 mg/dL (70-99) Calcium Level 8.4 mg/dL (8.5-10.1) Phosphorus Level 2.7 mg/dL (2.6-4.7) Total Bilirubin 0.3 mg/dL (0.2-1.0) Aspartate Amino Transf (AST/SGOT) 54 U/L (15-37) Alanine Aminotransferase (ALT/SGPT) 36 U/L (14-59) Alkaline Phosphatase 198 U/L (46-116) Total Protein 6.9 g/dL (6.4-8.2) Albumin 1.8 g/dL (3.4-5.0) Albumin/Globulin Ratio 0.4 (1.0-1.7) Laboratory Tests Test 08/25/20 05:55 White Blood Count 6.8 x10^3/uL (4.0-11.0) Red Blood Count 3.83 x10^6/uL (3.50-5.40) Hemoglobin 9.7 g/dL (12.0-15.5) Hematocrit 31.1 % (36.0-47.0) Mean Corpuscular Volume 81 fL (79-100) Mean Corpuscular Hemoglobin 25 pg (25-35) Mean Corpuscular Hemoglobin Concent 31 g/dL (31-37) Red Cell Distribution Width 19.1 % (11.5-14.5) Platelet Count 217 x10^3/uL (140-400) Neutrophils (%) (Auto) 72 % (31-73) Lymphocytes (%) (Auto) 16 % (24-48) Monocytes (%) (Auto) 8 % (0-9) Eosinophils (%) (Auto) 3 % (0-3) Basophils (%) (Auto) 1 % (0-3) Neutrophils # (Auto) 4.9 x10^3/uL (1.8-7.7) Lymphocytes # (Auto) 1.1 x10^3/uL (1.0-4.8) Monocytes # (Auto) 0.6 x10^3/uL (0.0-1.1) Eosinophils # (Auto) 0.2 x10^3/uL (0.0-0.7) Basophils # (Auto) 0.1 x10^3/uL (0.0-0.2) Sodium Level 138 mmol/L (136-145) Potassium Level 3.7 mmol/L (3.5-5.1) Chloride Level 105 mmol/L (98-107) Carbon Dioxide Level 25 mmol/L (21-32) Anion Gap 8 (6-14) Blood Urea Nitrogen 4 mg/dL (7-20) Creatinine 0.7 mg/dL (0.6-1.0) Estimated GFR (Cockcroft-Gault) 88.6 BUN/Creatinine Ratio 6 (6-20) Glucose Level 76 mg/dL (70-99) Calcium Level 8.4 mg/dL (8.5-10.1) Phosphorus Level 2.7 mg/dL (2.6-4.7) Total Bilirubin 0.3 mg/dL (0.2-1.0) Aspartate Amino Transf (AST/SGOT) 54 U/L (15-37) Alanine Aminotransferase (ALT/SGPT) 36 U/L (14-59) Alkaline Phosphatase 198 U/L (46-116) Total Protein 6.9 g/dL (6.4-8.2) Albumin 1.8 g/dL (3.4-5.0) Albumin/Globulin Ratio 0.4 (1.0-1.7) Microbiology 08/21/20 Blood Culture - Preliminary, Resulted NO GROWTH AFTER 3 DAYS Medications Current Medications Sodium Chloride 1,000 ml @ 1,000 mls/hr 1X ONCE IV Last administered on 08/21/20at 20:19; Start 08/21/20 at 20:00; Stop 08/21/20 at 20:59; Status DC Sodium Chloride 1,000 ml @ 1,000 mls/hr 1X ONCE IV Last administered on 08/21at 20:20; Start 08/21/20 at 20:00; Stop 08/21/20 at 20:59; Status DC Vancomycin HCl 250 ml @ 250 mls/hr 1X ONCE IV ; Start 08/21/20 at 20:00; Stop 08/21/20 at 20:59; Status UNV Sodium Chloride 1,000 ml @ 125 mls/hr 1X ONCE IV Last administered on 08/21/20at 20:20; Start 08/21/20 at 20:00; Stop 08/22/20 at 03:59; Status DC Vancomycin HCl 2 gm/Sodium Chloride 500 ml @ 250 mls/hr 1X ONCE IV Last administered on 08/21/20at 20:19; Start 08/21/20 at 20:15; Stop 08/21/20 at 22:14; Status DC Fentanyl Citrate (Fentanyl 2ml Vial) 50 mcg PRN Q1HR PRN IV PAIN Last administered on 08/22/20at 14:11; Start 08/21/20 at 20:30; Stop 08/22/20 at 20:29; Status DC Sennosides (Senna) 17.2 mg PRN BID PRN PO CONSTIPATION; Start 08/21/20 at 22:30 Docusate Sodium (Colace) 100 mg PRN DAILY PRN PO HARD STOOLS; Start 08/21/20 at 22:30; Stop 08/22/20 at 11:13; Status DC Ondansetron HCl (Zofran) 4 mg PRN Q6HRS PRN IVP NAUSEA/VOMITING; Start 08/21/20 at 22:30; Stop 08/22/20 at 11:13; Status DC Potassium Chloride (Klor-Con) 40 meq 1X PRN PO PER PROTOCOL; Start 08/21/20 at 22:30; Stop 08/24/20 at 11:16; Status DC Magnesium Oxide (Magnesium Oxide) 400 mg BID PO Last administered on 08/23/20at 21:31; Start 08/22/20 at 09:00; Stop 08/23/20 at 21:01; Status DC Potassium Chloride/Water 100 ml @ 100 mls/hr Q1H IV Last administered on 08/22/20at 00:04; Start 08/21/20 at 22:30; Stop 08/22/20 at 02:29; Status DC Magnesium Sulfate 50 ml @ 25 mls/hr Q24H IV Last administered on 08/23/20at 21:33; Start 08/21/20 at 22:30; Stop 08/24/20 at 00:29; Status DC Potassium Chloride/Water 100 ml @ 100 mls/hr PRN Q1HR PRN IV low k Last administered on 08/22/20at 01:07; Start 08/21/20 at 22:30 Dextrose (Dextrose 50%-Water Syringe) 12.5 gm PRN Q15MIN PRN IV SEE COMMENTS; Start 08/21/20 at 22:30 Sodium Chloride 1,000 ml @ 125 mls/hr Q8H IV Last administered on 08/22/20at 00:03; Start 08/21/20 at 22:30; Stop 08/22/20 at 11:13; Status DC Acetaminophen (Tylenol) 650 mg PRN Q4HRS PRN PO TEMP OVER 100.4F OR MILD PAIN; Start 08/21/20 at 22:30; Stop 08/22/20 at 11:12; Status DC Vancomycin HCl (Vanco Per Pharmacy) 1 each PRN DAILY PRN MC SEE COMMENTS Last administered on 08/22/20at 11:44; Start 08/21/20 at 22:30; Stop 08/22/20 at 13:40; Status DC Enoxaparin Sodium (Lovenox 40mg Syringe) 40 mg Q24H SQ Last administered on 08/22/20at 04:05; Start 08/21/20 at 22:30; Stop 08/22/20 at 11:12; Status DC Vancomycin HCl 1.5 gm/Sodium Chloride 500 ml @ 250 mls/hr Q12H IV Last administered on 08/22/20at 09:22; Start 08/22/20 at 08:30; Stop 08/22/20 at 13:40; Status DC Vancomycin HCl (Vancomycin Trough Level) 1 each 1X ONCE MC ; Start 08/23/20 at 08:00; Stop 08/22/20 at 13:40; Status DC Influenza Virus Vaccine Quadrival (Fluzone Quad Syringe) 0.5 ml ONCE ONCE VAX IM Last administered on 08/22/20at 09:24; Start 08/22/20 at 09:00; Stop 08/22/20 at 09:01; Status DC Potassium Chloride (Klor-Con) 40 meq 1X ONCE PO ; Start 08/22/20 at 11:00; Stop 08/22/20 at 11:01; Status UNV Potassium Bicarbonate (Potassium Effervescent Tablet) 40 meq 1X ONCE FT ; S tart 08/22/20 at 11:00; Stop 08/22/20 at 11:01; Status UNV Magnesium Oxide (Magnesium Oxide) 400 mg BID PO ; Start 08/22/20 at 21:00; Stop 08/24/20 at 09:01; Status UNV Potassium Chloride/Water 100 ml @ 100 mls/hr Q1H IV ; Start 08/22/20 at 11:00; Stop 08/22/20 at 14:59; Status UNV Magnesium Sulfate 50 ml @ 25 mls/hr Q24H IV ; Start 08/22/20 at 11:00; Stop 08/24/20 at 12:59; Status UNV Potassium Phos/ Sodium Phos (Phos-Nak) 1 pkt BID PO ; Start 08/22/20 at 21:00; Stop 08/23/20 at 09:01; Status UNV Potassium Bicarbonate (Potassium Effervescent Tablet) 40 meq Q4H PO ; Start 08/22/20 at 11:00; Stop 08/22/20 at 15:01; Status UNV Potassium Chloride/Water 100 ml @ 100 mls/hr Q1H IV ; Start 08/22/20 at 11:00; Stop 08/22/20 at 14:59; Status UNV Sodium Chloride (Normal Saline Flush) 3 ml QSHIFT PRN IV AFTER MEDS AND BLOOD DRAWS; Start 08/22/20 at 11:00 Sodium Chloride 1,000 ml @ 100 mls/hr Q10H IV Last administered on 08/25/20at 07:41; Start 08/22/20 at 10:59 Ondansetron HCl (Zofran) 4 mg PRN Q4HRS PRN IV NAUSEA/VOMITING; Start 08/22/20 at 11:00 Zolpidem Tartrate (Ambien) 5 mg PRN QHS PRN PO INSOMNIA; Start 08/22/20 at 11:00 Acetaminophen (Tylenol) 650 mg PRN Q4HRS PRN PO TEMP OVER 100.4F OR MILD PAIN; Start 08/22/20 at 11:00 Al Hydroxide/Mg Hydroxide (Mylanta Plus Xs) 30 ml PRN DAILY PRN PO HEARTBURN / GAS; Start 08/22/20 at 11:00 Clonidine HCl (Catapres) 0.1 mg PRN Q6HRS PRN PO SBP>160 OR DBP>90; Start 08/22/20 at 11:00 Sodium Monofluorophosphate (Fleet Adult) 133 ml PRN DAILY PRN [place] CONSTIPATION; Start 08/22/20 at 11:00 Diphenhydramine HCl (Benadryl) 25 mg PRN Q4HRS PRN IVP ITCHING; Start 08/22/20 at 11:00 Docusate Sodium (Colace) 100 mg PRN BID PRN PO HARD STOOLS; Start 08/22/20 at 11:00 Albuterol Sulfate (Ventolin Neb Soln) 2.5 mg PRN Q4HRS PRN NEB SHORTNESS OF BREATH; Start 08/22/20 at 11:00 Guaifenesin (Robitussin) 200 mg PRN Q4HRS PRN PO COUGH; Start 08/22/20 at 11:00 Lorazepam (Ativan) 0.5 mg PRN Q4HRS PRN PO ANXIETY / AGITATION; Start 08/22/20 at 11:00 Enoxaparin Sodium (Lovenox 40mg Syringe) 40 mg Q12H SQ Last administered on 08/25/20at 07:46; Start 08/22/20 at 21:00 Vancomycin HCl (Vanco Per Pharmacy) 1 each PRN DAILY PRN MC SEE COMMENTS; Start 08/22/20 at 11:00; Status Cancel Info (Non-Icu Electrolyte Protocol) 1 ea CONT PRN PRN MC SEE COMMENTS; Start 08/22/20 at 11:15 Lactobacillus Rhamnosus (Culturelle) 1 cap BID PO Last administered on 08/25/20at 07:48; Start 08/22/20 at 12:00 Ceftriaxone Sodium (Rocephin) 2 gm Q24H IVP Last administered on 08/24/20at 14:30; Start 08/22/20 at 15:00; Stop 08/25/20 at 08:06; Status DC Linezolid (Zyvox) 600 mg BID PO Last administered on 08/25/20at 07:47; Start 08/22/20 at 21:00 Oxycodone/ Acetaminophen (Percocet 5/325) 1 tab PRN Q4HRS PRN PO MODERATE PAIN, SEVERE PAIN Last administered on 08/25/20at 07:47; Start 08/22/20 at 14:45 Potassium Chloride (Klor-Con) 40 meq 1X ONCE PO Last administered on 08/24/20at 11:57; Start 08/24/20 at 11:15; Stop 08/24/20 at 11:16; Status DC Potassium Chloride (Klor-Con) 20 meq DAILYWBKFT PO Last administered on 08/25/20 at 07:49; Start 08/25/20 at 08:00 Ceftriaxone Sodium (Rocephin) 1 gm 1X ONCE IVP ; Start 08/25/20 at 10:00; Stop 08/25/20 at 10:01; Status DC Cefdinir (Omnicef) 300 mg BID PO ; Start 08/26/20 at 09:00 Active Scripts Active Reported Magnesium (Magnesium Oxide) 500 Mg Capsule 1 Cap PO BID 30 Days Multi Vitamin Daily (Multivitamin) 1 Each Tablet 1 Tab PO DAILY 30 Days Lactulose 20 Gm/30 Ml Solution 45 Ml PO DAILY Calcium Citrate 250 Mg Tablet 1,200 Mg PO DAILY 30 Days Xifaxan (Rifaximin) 550 Mg Tablet 1 Tab PO BID 10 Days Spironolactone 100 Mg Tablet 1 Tab PO DAILY Furosemide 40 Mg Tablet 1 Tab PO DAILY Nadolol 20 Mg Tablet 1 Tab PO DAILY Nortriptyline Hcl 25 Mg Capsule 50 Mg PO QHS Vitals/I & O Vital Sign - Last 24 Hours 08/24/20 08/24/20 08/24/20 08/24/20 10:38 15:00 19:00 19:40 Temp 97.9 97.9 98.2 97.9 97.9 98.2 Pulse 85 74 90 Resp 19 18 B/P (MAP) 117/72 (87) 120/69 (86) 135/87 (103) Pulse Ox 99 99 99 99 O2 Delivery Room Air Room Air Room Air Room Air 08/24/20 08/24/20 08/24/20 08/25/20 20:00 20:40 23:00 03:00 Temp 98.0 97.5 98.0 97.5 Pulse 87 76 Resp 18 20 18 B/P (MAP) 119/70 (86) 112/69 (83) Pulse Ox 99 98 98 O2 Delivery Room Air Room Air Room Air Room Air 08/25/20 08/25/20 07:47 07:59 Temp 97.8 97.8 Pulse 80 Resp 18 18 B/P (MAP) 140/78 (98) Pulse Ox 98 99 O2 Delivery Room Air Room Air Intake and Output0 08/24/20 08/24/20 08/25/20 15:00 23:00 07:00 Intake Total 600 ml 500 ml 740 ml Output Total 1 ml Balance 600 ml 499 ml 740 ml Justicifation of Admission Dx: Justifications for Admission: Justification of Admission Dx: Yes (cellulitis) SANDI BONNER MD Aug 25, 2020 10:14
[2020-08-25 10:55] VITALS: BP 98/68
--- NOTE | 2020-08-25 11:22 | PDOC3 ---
Discharge Summary Date of Admission: Aug 22, 2020 Date of Discharge: Aug 25, 2020 Follow-Up: 3-5 days Admitting Diagnosis comment: DISCHARGE DX Assessment/Plan Impression: Cellulitis LEFT LOWER LEG, SPIDER BITE POA MORBID OBESITY Sepsis electrolyte imbalance on replacement KEARNS Depression HYPOKALEMIA ORDERED: BCULT Procedure Result BLOOD CULTURE Preliminary NO GROWTH AFTER 2 DAYS ADMITTED continue Zyvox an Rocephin IV FLUID SUPPORT BLOOD CULTURE DT booster if needed dvt prophylaxis REPLACE K d/c home with zyvox/Cefdinir 7 days. Rocephin this am instead of Cefdiinr F/u Primary THURSDAY D/C PLANNING 28 MIN D/W RN Justifications for Admission Justifications for Admission General Conditions Elevated Lactate?: Yes Justification for admission: Patient has tachycardia (> 100 beats per minute) or hypotension (SBP < 90 mm Hg) leading to inadequate systemic perfusion as indicated by lactate of greater or equal to 2.5 mmol/L. Other justification for admit: cellulitis Other Justification History of Present Illness History of Present Illness dentification/Chief Complaint Chief Complaint SEEN IN ER WITH SEPSIS 50 year old female who presents with Thursday she states she mowed the grass. She states that she noticed what looked like a bug VS SPIDER bite to the back of the left lower leg the calf area. She states redness then developed quickly and has spread from the anterior and posterior of the leg with 2+ swelling. She states that she had taken her temperature and it was 104 08/21 Upon arrival her temperature was 99.2 IN ER . She states when she is just sitting the pain is a 4 out of 10. She states when she is up and moving is a sharp throbbing 8 out of 10. She states the pain does radiate up her leg. She is able to ambulate. denies any numbness or tingling, chest pain, shortness of air, cough, abdominal pain, nausea, vomiting, diarrhea, body aches, headache, dizziness. Patient has a history of cirrhosis, depression, gastric bypass. Past Medical History Past Medical History Past Medical History Past Medical History: Depression, Other Additional Past Medical Histor: KEARNS/CIRRHOSIS Past Surgical History: Appendectomy, Gastric Bypass, Tonsillectomy Smoking Status: Never Smoker Alcohol Use: Occasionally fhx obesity Family History Family History: Hypertension Social History Smoke: No ALCOHOL: none Drugs: None Current Problem List Problem List FINAL DIAGNOSIS Problems Medical Problems: (1) Cellulitis Status: Acute (2) Sepsis Status: Acute Brief Hospital Course Ms. Zamora is a 50 old [sex] who presented with [ INFECTED SPIDER BITE LEFT LEG ] CONDITION AT DISCHARGE: Improved Discharge Medications Current Medications Sodium Chloride 1,000 ml @ 1,000 mls/hr 1X ONCE IV Last administered on 08/21/20at 20:19; Start 08/21/20 at 20:00; Stop 08/21/20 at 20:59; Status DC Sodium Chloride 1,000 ml @ 1,000 mls/hr 1X ONCE IV Last administered on 08/21/20at 20:20; Start 08/21/20 at 20:00; Stop 08/21/20 at 20:59; Status DC Vancomycin HCl 250 ml @ 250 mls/hr 1X ONCE IV ; Start 08/21/20 at 20:00; Stop 08/21/20 at 20:59; Status UNV Sodium Chloride 1,000 ml @ 125 mls/hr 1X ONCE IV Last administered on 08/21/20at 20:20; Start 08/21/20 at 20:00; Stop 08/22/20 at 03:59; Status DC Vancomycin HCl 2 gm/Sodium Chloride 500 ml @ 250 mls/hr 1X ONCE IV Last administered on 08/21/20at 20:19; Start 08/21/20 at 20:15; Stop 08/21/20 at 22:14; Status DC Fentanyl Citrate (Fentanyl 2ml Vial) 50 mcg PRN Q1HR PRN IV PAIN Last administered on 08/22/20at 14:11; Start 08/21/20 at 20:30; Stop 08/22/20 at 20:29; Status DC Sennosides (Senna) 17.2 mg PRN BID PRN PO CONSTIPATION; Start 08/21/20 at 22:30 Docusate Sodium (Colace) 100 mg PRN DAILY PRN PO HARD STOOLS; Start 08/21/20 at 22:30; Stop 08/22/20 at 11:13; Status DC Ondansetron HCl (Zofran) 4 mg PRN Q6HRS PRN IVP NAUSEA/VOMITING; Start 08/21/20 at 22:30; Stop 08/22/20 at 11:13; Status DC Potassium Chloride (Klor-Con) 40 meq 1X PRN PO PER PROTOCOL; Start 08/21/20 at 22:30; Stop 08/24/20 at 11:16; Status DC Magnesium Oxide (Magnesium Oxide) 400 mg BID PO Last administered on 08/23/20at 21:31; Start 08/22/20 at 09:00; Stop 08/23/20 at 21:01; Status DC Potassium Chloride/Water 100 ml @ 100 mls/hr Q1H IV Last administered on 08/22/20at 00:04; Start 08/21/20 at 22:30; Stop 08/22/20 at 02:29; Status DC Magnesium Sulfate 50 ml @ 25 mls/hr Q24H IV Last administered on 08/23/20at 21:33; Start 08/21/20 at 22:30; Stop 08/24/20 at 00:29; Status DC Potassium Chloride/Water 100 ml @ 100 mls/hr PRN Q1HR PRN IV low k Last administered on 08/22/20at 01:07; Start 08/21/20 at 22:30 Dextrose (Dextrose 50%-Water Syringe) 12.5 gm PRN Q15MIN PRN IV SEE COMMENTS; Start 08/21/20 at 22:30 Sodium Chloride 1,000 ml @ 125 mls/hr Q8H IV Last administered on 08/22/20at 00:03; Start 08/21/20 at 22:30; Stop 08/22/20 at 11:13; Status DC Acetaminophen (Tylenol) 650 mg PRN Q4HRS PRN PO TEMP OVER 100.4F OR MILD PAIN; Start 08/21/20 at 22:30; Stop 08/22/20 at 11:12; Status DC Vancomycin HCl (Vanco Per Pharmacy) 1 each PRN DAILY PRN MC SEE COMMENTS Last administered on 08/22/20at 11:44; Start 08/21/20 at 22:30; Stop 08/22/20 at 13:40; Status DC Enoxaparin Sodium (Lovenox 40mg Syringe) 40 mg Q24H SQ Last administered on 08/22/20at 04:05; Start 08/21/20 at 22:30; Stop 08/22/20 at 11:12; Status DC Vancomycin HCl 1.5 gm/Sodium Chloride 500 ml @ 250 mls/hr Q12H IV Last administered on 08/22/20at 09:22; Start 08/22/20 at 08:30; Stop 08/22/20 at 13:40; Status DC Vancomycin HCl (Vancomycin Trough Level) 1 each 1X ONCE MC ; Start 08/23/20 at 08:00; Stop 08/22/20 at 13:40; Status DC Influenza Virus Vaccine Quadrival (Fluzone Quad Syringe) 0.5 ml ONCE ONCE VAX IM Last administered on 08/22/20at 09:24; Start 08/22/20 at 09:00; Stop 08/22/20 at 09:01; Status DC Potassium Chloride (Klor-Con) 40 meq 1X ONCE PO ; Start 08/22/20 at 11:00; Sto p 08/22/20 at 11:01; Status UNV Potassium Bicarbonate (Potassium Effervescent Tablet) 40 meq 1X ONCE FT ; Start 08/22/20 at 11:00; Stop 08/22/20 at 11:01; Status UNV Magnesium Oxide (Magnesium Oxide) 400 mg BID PO ; Start 08/22/20 at 21:00; Stop 08/24/20 at 09:01; Status UNV Potassium Chloride/Water 100 ml @ 100 mls/hr Q1H IV ; Start 08/22/20 at 11:00; Stop 08/22/20 at 14:59; Status UNV Magnesium Sulfate 50 ml @ 25 mls/hr Q24H IV ; Start 08/22/20 at 11:00; Stop 08/24/20 at 12:59; Status UNV Potassium Phos/ Sodium Phos (Phos-Nak) 1 pkt BID PO ; Start 08/22/20 at 21:00; Stop 08/23/20 at 09:01; Status UNV Potassium Bicarbonate (Potassium Effervescent Tablet) 40 meq Q4H PO ; Start 08/22/20 at 11:00; Stop 08/22/20 at 15:01; Status UNV Potassium Chloride/Water 100 ml @ 100 mls/hr Q1H IV ; Start 08/22/20 at 11:00; Stop 08/22/20 at 14:59; Status UNV Sodium Chloride (Normal Saline Flush) 3 ml QSHIFT PRN IV AFTER MEDS AND BLOOD DRAWS; Start 08/22/20 at 11:00 Sodium Chloride 1,000 ml @ 100 mls/hr Q10H IV Last administered on 08/25/20at 07:41; Start 08/22/20 at 10:59 Ondansetron HCl (Zofran) 4 mg PRN Q4HRS PRN IV NAUSEA/VOMITING; Start 08/22/20 at 11:00 Zolpidem Tartrate (Ambien) 5 mg PRN QHS PRN PO INSOMNIA; Start 08/22/20 at 11:00 Acetaminophen (Tylenol) 650 mg PRN Q4HRS PRN PO TEMP OVER 100.4F OR MILD PAIN; Start 08/22/20 at 11:00 Al Hydroxide/Mg Hydroxide (Mylanta Plus Xs) 30 ml PRN DAILY PRN PO HEARTBURN / GAS; Start 08/22/20 at 11:00 Clonidine HCl (Catapres) 0.1 mg PRN Q6HRS PRN PO SBP>160 OR DBP>90; Start 08/22/20 at 11:00 Sodium Monofluorophosphate (Fleet Adult) 133 ml PRN DAILY PRN [place] CONSTIPATION; Start 08/22/20 at 11:00 Diphenhydramine HCl (Benadryl) 25 mg PRN Q4HRS PRN IVP ITCHING; Start 08/22/20 at 11:00 Docusate Sodium (Colace) 100 mg PRN BID PRN PO HARD STOOLS; Start 08/22/20 at 11:00 Albuterol Sulfate (Ventolin Neb Soln) 2.5 mg PRN Q4HRS PRN NEB SHORTNESS OF BREATH; Start 08/22/20 at 11:00 Guaifenesin (Robitussin) 200 mg PRN Q4HRS PRN PO COUGH; Start 08/22/20 at 11:00 Lorazepam (Ativan) 0.5 mg PRN Q4HRS PRN PO ANXIETY / AGITATION; Start 08/22/20 at 11:00 Enoxaparin Sodium (Lovenox 40mg Syringe) 40 mg Q12H SQ Last administered on 08/25/20at 07:46; Start 08/22/20 at 21:00 Vancomycin HCl (Vanco Per Pharmacy) 1 each PRN DAILY PRN MC SEE COMMENTS; Start 08/22/20 at 11:00; Status Cancel Info (Non-Icu Electrolyte Protocol) 1 ea CONT PRN PRN MC SEE COMMENTS; Start 08/22/20 at 11:15 Lactobacillus Rhamnosus (Culturelle) 1 cap BID PO Last administered on 08/25/20at 07:48; Start 08/22/20 at 12:00 Ceftriaxone Sodium (Rocephin) 2 gm Q24H IVP Last administered on 08/24/20at 14:30; Start 08/22/20 at 15:00; Stop 08/25/20 at 08:06; Status DC Linezolid (Zyvox) 600 mg BID PO Last administered on 08/25/20at 07:47; Start 08/22/20 at 21:00 Oxycodone/ Acetaminophen (Percocet 5/325) 1 tab PRN Q4HRS PRN PO MODERATE PAIN, SEVERE PAIN Last administered on 08/25/20at 07:47; Start 08/22/20 at 14:45 Potassium Chloride (Klor-Con) 40 meq 1X ONCE PO Last administered on 08/24/20at 11:57; Start 08/24/20 at 11:15; Stop 08/24/20 at 11:16; Status DC Potassium Chloride (Klor-Con) 20 meq DAILYWBKFT PO Last administered on 08/25/20at 07:49; Start 08/25/20 at 08:00 Ceftriaxone Sodium (Rocephin) 1 gm 1X ONCE IVP Last administered on 08/25/20at 10:34; Start 08/25/20 at 10:00; Stop 08/25/20 at 10:01; Status DC Cefdinir (Omnicef) 300 mg BID PO ; Start 08/26/20 at 09:00 Active Scripts Active Reported Magnesium (Magnesium Oxide) 500 Mg Capsule 1 Cap PO BID 30 Days Multi Vitamin Daily (Multivitamin) 1 Each Tablet 1 Tab PO DAILY 30 Days Lactulose 20 Gm/30 Ml Solution 45 Ml PO DAILY Calcium Citrate 250 Mg Tablet 1,200 Mg PO DAILY 30 Days Xifaxan (Rifaximin) 550 Mg Tablet 1 Tab PO BID 10 Days Spironolactone 100 Mg Tablet 1 Tab PO DAILY Furosemide 40 Mg Tablet 1 Tab PO DAILY Nadolol 20 Mg Tablet 1 Tab PO DAILY Nortriptyline Hcl 25 Mg Capsule 50 Mg PO QHS Vital Signs Vital Signs Date Time Temp Pulse Resp B/P (MAP) Pulse Ox O2 Delivery O2 Flow Rate FiO2 08/25/20 07:59 97.8 80 18 140/78 (98) 99 Room Air 97.8 Labs Laboratory Tests Test 08/24/20 08:15 08/25/20 05:55 Magnesium Level 2.0 mg/dL (1.8-2.4) White Blood Count 6.8 x10^3/uL (4.0-11.0) Red Blood Count 3.83 x10^6/uL (3.50-5.40) Hemoglobin 9.7 g/dL (12.0-15.5) Hematocrit 31.1 % (36.0-47.0) Mean Corpuscular Volume 81 fL (79-100) Mean Corpuscular Hemoglobin 25 pg (25-35) Mean Corpuscular Hemoglobin Concent 31 g/dL (31-37) Red Cell Distribution Width 19.1 % (11.5-14.5) Platelet Count 217 x10^3/uL (140-400) Neutrophils (%) (Auto) 72 % (31-73) Lymphocytes (%) (Auto) 16 % (24-48) Monocytes (%) (Auto) 8 % (0-9) Eosinophils (%) (Auto) 3 % (0-3) Basophils (%) (Auto) 1 % (0-3) Neutrophils # (Auto) 4.9 x10^3/uL (1.8-7.7) Lymphocytes # (Auto) 1.1 x10^3/uL (1.0-4.8) Monocytes # (Auto) 0.6 x10^3/uL (0.0-1.1) Eosinophils # (Auto) 0.2 x10^3/uL (0.0-0.7) Basophils # (Auto) 0.1 x10^3/uL (0.0-0.2) Sodium Level 138 mmol/L (136-145) Potassium Level 3.7 mmol/L (3.5-5.1) Chloride Level 105 mmol/L (98-107) Carbon Dioxide Level 25 mmol/L (21-32) Anion Gap 8 (6-14) Blood Urea Nitrogen 4 mg/dL (7-20) Creatinine 0.7 mg/dL (0.6-1.0) Estimated GFR (Cockcroft-Gault) 88.6 BUN/Creatinine Ratio 6 (6-20) Glucose Level 76 mg/dL (70-99) Calcium Level 8.4 mg/dL (8.5-10.1) Phosphorus Level 2.7 mg/dL (2.6-4.7) Total Bilirubin 0.3 mg/dL (0.2-1.0) Aspartate Amino Transf (AST/SGOT) 54 U/L (15-37) Alanine Aminotransferase (ALT/SGPT) 36 U/L (14-59) Alkaline Phosphatase 198 U/L (46-116) Total Protein 6.9 g/dL (6.4-8.2) Albumin 1.8 g/dL (3.4-5.0) Albumin/Globulin Ratio 0.4 (1.0-1.7) Laboratory Tests Test 08/25/20 05:55 White Blood Count 6.8 x10^3/uL (4.0-11.0) Red Blood Count 3.83 x10^6/uL (3.50-5.40) Hemoglobin 9.7 g/dL (12.0-15.5) Hematocrit 31.1 % (36.0-47.0) Mean Corpuscular Volume 81 fL (79-100) Mean Corpuscular Hemoglobin 25 pg (25-35) Mean Corpuscular Hemoglobin Concent 31 g/dL (31-37) Red Cell Distribution Width 19.1 % (11.5-14.5) Platelet Count 217 x10^3/uL (140-400) Neutrophils (%) (Auto) 72 % (31-73) Lymphocytes (%) (Auto) 16 % (24-48) Monocytes (%) (Auto) 8 % (0-9) Eosinophils (%) (Auto) 3 % (0-3) Basophils (%) (Auto) 1 % (0-3) Neutrophils # (Auto) 4.9 x10^3/uL (1.8-7.7) Lymphocytes # (Auto) 1.1 x10^3/uL (1.0-4.8) Monocytes # (Auto) 0.6 x10^3/uL (0.0-1.1) Eosinophils # (Auto) 0.2 x10^3/uL (0.0-0.7) Basophils # (Auto) 0.1 x10^3/uL (0.0-0.2) Sodium Level 138 mmol/L (136-145) Potassium Level 3.7 mmol/L (3.5-5.1) Chloride Level 105 mmol/L (98-107) Carbon Dioxide Level 25 mmol/L (21-32) Anion Gap 8 (6-14) Blood Urea Nitrogen 4 mg/dL (7-20) Creatinine 0.7 mg/dL (0.6-1.0) Estimated GFR (Cockcroft-Gault) 88.6 BUN/Creatinine Ratio 6 (6-20) Glucose Level 76 mg/dL (70-99) Calcium Level 8.4 mg/dL (8.5-10.1) Phosphorus Level 2.7 mg/dL (2.6-4.7) Total Bilirubin 0.3 mg/dL (0.2-1.0) Aspartate Amino Transf (AST/SGOT) 54 U/L (15-37) Alanine Aminotransferase (ALT/SGPT) 36 U/L (14-59) Alkaline Phosphatase 198 U/L (46-116) Total Protein 6.9 g/dL (6.4-8.2) Albumin 1.8 g/dL (3.4-5.0) Albumin/Globulin Ratio 0.4 (1.0-1.7) Allergies Allergies Coded Allergies Type Severity Reaction Last Updated Verified Penicillins Allergy Intermediate 08/23/20 Yes Disposition/Orders: D/C to Home Justicifation of Admission Dx: Justifications for Admission: Justification of Admission Dx: Yes (cellulitis) SANDI BONNER MD Aug 25, 2020 11:22
[2020-08-25] MEDS ORDERED: CEFD300C PO (11:32)
[2020-08-25] MEDS ORDERED: POTA20TA4 PO (11:32)
[2020-08-25] MEDS ORDERED: LACT1CAP19 PO (11:32)
[2020-08-25] MEDS ORDERED: MAG30ORA2 PO (11:32)
[2020-08-25] MEDS ORDERED: ACET325T9 PO (11:32)
[2020-08-25] MEDS ORDERED: DOCU-153 PO (11:32)
[2020-08-25] MEDS ORDERED: OXYC1TAB15 PO (11:32)
[2020-08-25] MEDS ORDERED: LINE600T12 PO (11:32)
[2020-08-25] MEDS ORDERED: SENN-87 PO (11:32)
--- NOTE | 2020-08-25 11:34 | DISCH ---
DISCHARGE INSTRUCTIONS Condition on Discharge Condition on Discharge: Stable Activity After Discharge Activity Instructions for Disc: Activity as tolerated Lifting Instructions after Dis: No heavy lifting, No pulling or pushing Driving Instructions after Dis: Do not drive Diet after Discharge Diet after Discharge: Cardiac Liquid Texture: Thin Liquid Checks after Discharge Checks after discharge: Check blood press - daily Contacting the after DC Call your doctor for: If your condition worsens Warfarin Follow-Up Warfarin Follow UP: SEE PCP THURSDAY SANDI BONNER MD Aug 25, 2020 11:34
[2020-08-26] MEDS ORDERED: CEFDINIR 300 MG CAPSULE PO SCH (09:00)
== END 2020-08-25 13:00 | disposition home or self-care (01) | DRG 871 ==
LOC: ER 17:21 → ED HOLD 20:15 → 5 NORTH 21:39
PROVIDERS: ADMIT Internal Medicine; ATTEND Internal Medicine
DX: A41.9 Sepsis, unspecified organism (principal); E43 Unspecified severe protein-calorie malnutrition; L03.116 Cellulitis of left lower limb; Z68.41 Body mass index [BMI] 40.0-44.9, adult; F32.9 Major depressive disorder, single episode, unspecified; E87.6 Hypokalemia; E66.01 Morbid (severe) obesity due to excess calories; K75.81 Nonalcoholic steatohepatitis (NASH); I10 Essential (primary) hypertension; W57.XXXA Bitten or stung by nonvenomous insect and other nonvenomous arthropods, initial encounter; K74.60 Unspecified cirrhosis of liver; Z98.84 Bariatric surgery status; Z88.0 Allergy status to penicillin; Z82.49 Family history of ischemic heart disease and other diseases of the circulatory system; Z87.891 Personal history of nicotine dependence; Z90.49 Acquired absence of other specified parts of digestive tract; Y93.89 Activity, other specified; Y92.89 Other specified places as the place of occurrence of the external cause; Y99.8 Other external cause status; Z79.899 Other long term (current) drug therapy
CPT/HCPCS: 36415; 80048; 80053; 82550; 83605; 83735; 84100; 85007; 85025; 85610; 87040; 90471; 90686; 93971; 96374; 96375; 99285; J0696; J1650; J3010; J3370; J3475; J3480; J7030; J7040; 97116-GP; 97530-GO; 97535-GO; G0378